=== PATIENT | female | born 1955 | race Caucasian/White ===

== ENCOUNTER → 2016-11-11 | Outpatient (CLI) | payer BC ==
[~2016-11-11] MED LIST: AMOX875T PO; ASPI81TA28 PO; CHOL2000 PO; CLIN1CAP51 PO; ERGO500037 PO; FLUC150T PO; GLUCTAB7 PO; HYZ/10015 PO; OMEG10007 PO; TRAM-10 PO
--- NOTE | 2016-11-11 11:49 | DIAGNOSTIC IMAGING REPORT ---
RIGHT LOWER ABDOMINAL WALL ULTRASOUND CLINICAL HISTORY: RT INGUINAL HERNIA pain COMPARISON STUDY: No previous studies for comparison. FINDINGS: No abdominal wall or inguinal hernia was visualized. Imaging was performed without and with stress maneuvers. IMPRESSION: No ultrasonographic evidence of hernia. Electronically signed by: Lorenzo Palafox M.D. 11/11/2016 11:47 AM
== END | disposition home or self-care (01) ==
LOC: C.ULTRBC 11:06
DX: K40.90 Unilateral inguinal hernia, without obstruction or gangrene, not specified as recurrent (principal)

== ENCOUNTER → 2016-11-26 | Outpatient (CLI) | payer BC ==
--- NOTE | 2016-11-26 14:24 | MAMMOGRAPHY REPORT ---
BILATERAL DIGITAL SCREENING MAMMOGRAM TOMOSYNTHESIS WITH CAD: 11/26/2016 CLINICAL HISTORY: Routine screening. Patient has no complaints. TECHNIQUE: Breast tomosynthesis in addition to standard 2D mammography was performed. Current study was also evaluated with a Computer Aided Detection (CAD) system. COMPARISON: Comparison is made to exams dated: 12/28/2015 mammogram, 11/21/2015 mammogram, 11/12/2015 m ammogram, 11/08/2014 mammogram, 11/07/2013 mammogram, and 11/04/2012 mammogram - [facility]. BREAST COMPOSITION: There are scattered areas of fibroglandular density in both breasts. FINDINGS: No suspicious masses, calcifications, or areas of architectural distortion are noted in e ither breast. There has been no significant interval change compared to prior exams. A biopsy marke r clip is noted in the left upper inner quadrant. Scattered bilateral benign-appearing calcificatio ns are not significantly changed. IMPRESSION: ACR BI-RADS CATEGORY 2: BENIGN There is no mammographic evidence of malignancy. A 1 year screening mammogram is recommended. The p atient will receive written notification of the results. Approximately 10% of breast cancers are not detected with mammography. A negative mammographic repor t should not delay biopsy if a clinically suggestive mass is present. Heavenly Martínez M.D. /:11/26/2016 12:22:08 Leadership Program Associate: Linnette VARMA(Juany)(Juan)(BD), [facility] letter sent: Normal 1/2 BI-RADS Code: ACR BI-RADS Category 2: Benign
== END | disposition home or self-care (01) ==
LOC: C.MAMM 11:47
DX: Z12.31 Encounter for screening mammogram for malignant neoplasm of breast (principal)

== ENCOUNTER → 2017-04-08 | Outpatient (CLI) | payer BC ==
[2017-04-08 11:10] LABS: ESTIMATED AVERAGE GLUCOSE 123 mg/dl; HA1C FLAG Normal (Normal)
[2017-04-08 11:25] LABS: ALT/SGPT 36 U/L (12-78); AST/SGOT 17 U/L (15-37); BLOOD UREA NITROGEN 14 mg/dl (7-18); BUN/CREATININE RATIO 16.6 (10-20); CARBON DIOXIDE 28 mmol/L (21-32); CHLORIDE 106 mmol/L (98-107); CREATININE 0.86 mg/dl (0.60-1.20); GLUCOSE 107 mg/dl (70-99); POTASSIUM 4.1 mmol/L (3.5-5.1); SODIUM 141 mmol/L (136-145)
== END | disposition home or self-care (01) ==
LOC: C.LABBC 07:37
DX: I10 Essential (primary) hypertension (principal); E78.5 Hyperlipidemia, unspecified; E55.9 Vitamin D deficiency, unspecified

== ENCOUNTER → 2017-05-11 | Outpatient (CLI) | payer BC ==
[2017-05-11 13:02] LABS: BASO % 0.3 %; BASO ABS # 0.02 K/uL (0-0.2); COMPLETE YES; EOS % 3.3 %; HEMATOCRIT 41.6 % (37-47); IG% 0.3 %; LYMPH % 31.5 %; LYMPH ABS # 2.03 K/uL (1.2-3.4); MEAN CELL VOLUME 91.8 fL (80-100); MEAN CORPUSCULAR HEMOGLOBIN 31.1 pg (25-34); MEAN CORPUSCULAR HGB CONC 33.9 g/dl (32-36); MEAN PLATELET VOLUME 10.2 fL (7.4-10.4); MONO % 6.2 %; NEUT % 58.4 %; PLATELET COUNT 210 K/uL (130-400); RED BLOOD COUNT 4.53 M/uL (4.2-5.4); WHITE BLOOD COUNT 6.44 K/uL (4.8-10.8)
[2017-05-11 13:39] LABS: BLOOD UREA NITROGEN 10 mg/dl (7-18); BUN/CREATININE RATIO 13.2 (10-20); CALCIUM 9.2 mg/dl (8.5-10.1); CARBON DIOXIDE 26 mmol/L (21-32); CHLORIDE 110 mmol/L (98-107); CREATININE 0.73 mg/dl (0.60-1.20); GLUCOSE 114 mg/dl (70-99); POTASSIUM 3.9 mmol/L (3.5-5.1); SODIUM 143 mmol/L (136-145)
== END | disposition home or self-care (01) ==
LOC: C.CPL 12:13
PROVIDERS: ATTEND Orthopaedic Surgery
DX: G56.02 Carpal tunnel syndrome, left upper limb (principal); R00.1 Bradycardia, unspecified

== ENCOUNTER → 2017-05-19 | Day surgery (SDC) | payer BC ==
[2017-05-13 13:26] VITALS: Ht 167.6 cm; Wt 94.5 kg
[~2017-05-19] VITALS: Ht 167.6 cm; Wt 94.5 kg
[~2017-05-19] MED LIST changes: +ADENOSINE IV SOLN 3 MG/ML 2 ML VIAL ONE; +ATROPINE SULFATE 0.1 MG/ML 5ML SYR IV PRN; +BETAMETH SOD PHOS/ACETATE IA 6 MG/ML ONE; +BUPIVACAINE 0.5 % 5 MG/1 ML MPF 30ML VIAL ONE; +CEFAZOLIN 2000 MG/60 ML D5W IV SCH; +EpHEDrine SULFATE INJ 50 MG/ML AMP IV PRN; +FENTANYL CITRATE INJ 50 MCG/1 ML 2 ML VIAL IV PRN; +FENTANYL CITRATE INJ 50 MCG/1 ML 2 ML VIAL ONE; +FLUMAZENIL 0.1 MG/1 ML 10 ML VIAL IV PRN; +HYDROmorphone INJ 2 MG/ML SYR/VIAL IV PRN; +LABETALOL HCL IV 5 MG/ML 20ML IV PRN; +LACTATED RINGER'S 1000ML 1,000 ML IV SCH; +LIDOCAINE HCL 1% 20 ML VIAL ONE; +LIDOCAINE HCL 2% 2 ML VIAL (20MG/ML) ONE; +MEPERIDINE HCL 25 MG/ML CARP IV PRN; +MIDAZOLAM HCL 1 MG/ML 2ML VIAL ONE; +NALOXONE HCL 0.4 MG/1 ML VIAL/CARP IV PRN; +ONDANSETRON INJ 2 MG/ML 2 ML VIAL IV PRN; +PHENYLEPHRINE 100MCG/ML 5ML SYR IV PRN; +PROPOFOL IV EMULSION 10 MG/ML 20 ML VIAL IV ONE; +SODIUM CHLORIDE 0.9% 1000ML 1,000 ML IV SCH; +TRAMADOL HCL 50 MG TAB PO PRN
--- NOTE | 2017-05-19 06:47 | History & Physical Bridge - SC ---
H&P Re-Evaluation Bridge Note: I have examined the patient, reviewed the History & Physical and in the interval since the performance of the History & Physical I have noted the following changes of clinical significance: No changes noted
--- NOTE | 2017-05-19 07:58 | [facility] Post Operative Brief Note ---
Immediate Operative Summary Operative Date May 19, 2017. Pre-Operative Diagnosis Left carpal tunnel syndrome and left trigger thumb release, Right trigger thumb and long finger Post-Operative Diagnosis Same as preop Procedure(s) Performed Left Carpal Tunnel Release; Left Trigger Thumb Release; Right Thumb And Right Long Finger Injections Surgeon Dr. Castro Out Of School Hours Care Worker Surgeon(s) None Estimated Blood Loss Minimal Findings ABOVE Specimens None Anesthesia LOCAL IV SEDATION Complication(s) None Disposition
--- NOTE | 2017-05-19 07:59 | Discharge Instructions-SurgCtr ---
Discharge Instructions Date of Service May 19, 2017. Visit Reason for Visit: Snapping Thumb Syndrome, Cts, Triggering Digit Discharge Discharge Diagnosis / Problem: SAME ABOVE Discharge Goals Goal(s): Decrease discomfort, Improve function Medications Stopped Medications Name(s): asa 81mg, vitamin d3, vitamin d, fish oil, and glucosamine stopped 05/13/17 Restart Stopped Medication(s): MAY RESTART 05/19/2017 Activity Recommendations Activity Limitations: as noted below Lifting Limitations: until after follow-up appointment Driving or Machine Use: resume 1 day after discharge Anesthesia . Post Anesthesia Instructions: If you have had General Anesthesia or IV Sedation: * Do not drive today. * Resume driving when surgeon permits. * Do not make important decisions or sign legal documents today. * Call surgeon for: 1. Temperature elevations greater than 101 degrees F. 2. Uncontrollable pain. 3. Excessive bleeding. 4. Persistent nausea and vomiting. 5. Medication intolerance (nausea, vomiting or rash). * For nausea and vomiting use only clear liquids such as: tea, soda, bouillon until nausea subsides, then gradually increase diet as tolerated. * If you have any concerns or questions, call your surgeon's office. If physician is unavailable and it is an emergency, call 911 or go to the nearest emergency room. . Instructions / Follow-Up Instructions / Follow-Up MEDICATIONS: * Resume previous medications unless instructed otherwise by your surgeon. * Always take pain medication on a full stomach or with food to avoid upset stomach. * Do not drink alcohol or drive while taking narcotics. * Ibuprofen or Tylenol may be taken if narcotic not needed. SPECIAL CARE INSTRUCTIONS: __ None _X_ Keep extremity elevated and iced x 48 hours; apply ice 20-30 minutes 8-10 times/day. May remove at night. __ Sling __24 hrs/day __ Remove at night __ Shoulder Immobilizer __ 24 hrs/day __ Remove at night _X_ Dressing _X_ Maintain until seen in office, may shower with plastic over site __ Remove dressings in 24-48 hours and then may shower __ Cover incisions with band-aids after showering __ Do not remove steri-strips Call physician if chills or temperature rises above 102 degrees or pain unrelieved by prescribed pain medications at . . Diet Recommendations Home Diet: no limitations Fluid Restriction: None Procedures Procedures Performed: Left Carpal Tunnel Release; Left Trigger Thumb Release; Right Thumb And Right Long Finger Injections Pending Studies Studies pending at discharge: no Work Instructions Return To Work: after follow-up Lifting Limitations: no more than 10 pounds Medical Emergencies . Who to Call and When: Medical Emergencies: If at any time you feel your situation is an emergency, please call 911 immediately. . Non-Emergent Contact Non-Emergency issues call your: Primary Care Provider Call Non-Emergent contact if: you have a fever, temperature is above 101.5 . . "Provider Documentation" section prepared by Venkat Fierro. .
[2017-05-19 08:03] VITALS: TEMP 36.6
--- NOTE | 2017-05-19 08:15 | Anesthesia Progress Nt - [facility] ---
Anesthesia Post Op Note Date & Time May 19, 2017 at 08:15 Vital Signs Pain Intensity: 0 Vital Signs Past 12 Hours Date Time Temp Pulse Resp B/P (MAP) Pulse Ox O2 Delivery O2 Flow Rate FiO2 05/19/17 08:03 36.6 63 16 112/70 (84) 98 Room Air 05/19/17 06:46 36.8 67 16 128/82 (97) 94 Room Air Notes Mental Status: alert / awake / arousable, participated in evaluation Pt Amnestic to Procedure: Yes Nausea / Vomiting: adequately controlled Pain: adequately controlled Airway Patency, RR, SpO2: stable & adequate BP & HR: stable & adequate Hydration State: stable & adequate Anesthetic Complications: no major complications apparent
[2017-05-19 08:35] VITALS: BP 135/81; PULSE 51; O2SAT 100
== END | disposition home or self-care (01) ==
LOC: X.SURG 06:31
PROVIDERS: ATTEND Orthopaedic Surgery
DX: M65.311 Trigger thumb, right thumb (principal); M65.312 Trigger thumb, left thumb; M65.331 Trigger finger, right middle finger; G56.02 Carpal tunnel syndrome, left upper limb; E78.00 Pure hypercholesterolemia, unspecified; I10 Essential (primary) hypertension; Z82.49 Family history of ischemic heart disease and other diseases of the circulatory system; Z83.3 Family history of diabetes mellitus

== ENCOUNTER → 2017-05-27 | Outpatient (CLI) | payer BC ==
[~2017-05-27] MED LIST changes: -ADENOSINE IV SOLN 3 MG/ML 2 ML VIAL ONE; -ATROPINE SULFATE 0.1 MG/ML 5ML SYR IV PRN; -BETAMETH SOD PHOS/ACETATE IA 6 MG/ML ONE; -BUPIVACAINE 0.5 % 5 MG/1 ML MPF 30ML VIAL ONE; -CEFAZOLIN 2000 MG/60 ML D5W IV SCH; -EpHEDrine SULFATE INJ 50 MG/ML AMP IV PRN; -FENTANYL CITRATE INJ 50 MCG/1 ML 2 ML VIAL IV PRN; -FENTANYL CITRATE INJ 50 MCG/1 ML 2 ML VIAL ONE; -FLUMAZENIL 0.1 MG/1 ML 10 ML VIAL IV PRN; -HYDROmorphone INJ 2 MG/ML SYR/VIAL IV PRN; -LABETALOL HCL IV 5 MG/ML 20ML IV PRN; -LACTATED RINGER'S 1000ML 1,000 ML IV SCH; -LIDOCAINE HCL 1% 20 ML VIAL ONE; -LIDOCAINE HCL 2% 2 ML VIAL (20MG/ML) ONE; -MEPERIDINE HCL 25 MG/ML CARP IV PRN; -MIDAZOLAM HCL 1 MG/ML 2ML VIAL ONE; -NALOXONE HCL 0.4 MG/1 ML VIAL/CARP IV PRN; -ONDANSETRON INJ 2 MG/ML 2 ML VIAL IV PRN; -PHENYLEPHRINE 100MCG/ML 5ML SYR IV PRN; -PROPOFOL IV EMULSION 10 MG/ML 20 ML VIAL IV ONE; -SODIUM CHLORIDE 0.9% 1000ML 1,000 ML IV SCH; -TRAMADOL HCL 50 MG TAB PO PRN
== END | disposition home or self-care (01) ==
LOC: C.MAMM 11:21
DX: Z13.820 Encounter for screening for osteoporosis (principal)

== ENCOUNTER 2017-06-08 10:12 | Emergency (ER) | payer BC ==
[~2017-06-08] VITALS: Ht 167.6 cm; Wt 93.0 kg
[~2017-06-08 10:12] MED LIST changes: -AMOX875T PO; -CLIN1CAP51 PO; -FLUC150T PO
[2017-06-08 10:16] VITALS: TEMP 37.5; Ht 167.6 cm; Wt 93.0 kg
[2017-06-08] MEDS ORDERED: CHOL2000 PO (10:27)
[2017-06-08] MEDS ORDERED: AMPICILLIN/SULBACTAM SOD INJ 3,000 MG in SODIUM CHLORIDE 0.9% 100ML 100 ML IV ONE (11:15)
[2017-06-08] MEDS ORDERED: AMOX875T PO (12:00)
[2017-06-08] MEDS ORDERED: FLUC150T PO (12:41)
[2017-06-08 12:43] VITALS: BP 127/64; PULSE 92; O2SAT 96
--- NOTE | 2017-06-08 16:30 | EMERGENCY ROOM VISIT NOTE ---
History First contact with patient: 10:41 Chief Complaint: FEVER Stated Complaint: HIGH FEVER History of Present Illness The patient is a 61 year old female who presents to the Emergency Room with complaints of dental pain. The patient reports that she was recently seen on for an abscess. Her dentist is Dr. Farris. The patient was offered antibiotics, but refused because of a prior history of yeast infection with antibiotics. The patient reports that she did have a fever last after her procedure. The patient denies any difficulty with swallowing, chest pain or neck pain. She did have a fever Thursday morning of 102.1F, and Thursday fever of 102.3F. The patient currently rates her pain a 3 out of 10. Review of Systems 10 system review was performed and was negative except for pertinent positives and negatives as indicated in history of present illness Past Medical/Surgical History Medical Problems: (1) Carotid Artery Occlusion W O Cerebral Infarction (2) Carpal Tunnel Syndrome, Left Upper Limb (3) Diab Jody Wo Compl, Type Ii Or Unspec Type, Not Uncntrld (4) Fat Necrosis Of Breast (5) Hyperlipidemia Nec/Nos (6) Hypertension Nos (7) Lumbago (8) Osteoporosis, unspecified (9) Vitamin D Deficiency Nos Surgical Problems: (1) History of arthroscopy of left knee (2) History of carpal tunnel surgery Social History Smoking Status: Never Smoker Alcohol Use: none Marital Status: Housing Status: lives with family Occupation Status: employed Current/Historical Medications Scheduled Amoxicillin & Pot Clavulanate (Augmentin 875-125 mg), 1 TAB PO BID Aspirin (Aspirin Ec), 81 MG PO Q2D Cholecalciferol (Vitamin D3), 2,000 UNIT PO DAILY Ergocalciferol (Vitamin D 71999 Unit), 50,000 UNIT PO WK Fish Oil ([place]-3), 1 CAP PO QAM Fluconazole (Diflucan), 150 MG PO UD Pdkgfrjdxqb-Kdxaddtkjfg-Lhj C- (Glucosamine Chondroitin), 1 TAB PO DAILY Hctz/Losartan (Hyzaar 25MG/100MG), 1 TAB PO QAM Physical Exam Vital Signs Date Time Temp Pulse Resp B/P (MAP) Pulse Ox O2 Delivery O2 Flow Rate FiO2 06/08/17 12:43 92 16 127/64 96 06/08/17 11:58 92 16 127/64 96 Room Air 06/08/17 10:16 37.5 95 18 118/70 96 Room Air Pain Rating (0-10): 0 Physical Exam CONSTITUTIONAL: Healthy and well nourished. Alert and oriented X 3 with positive affect. Patient does not appear in any acute distress, nor does she appear acutely or toxic. HEENT: Normocephalic, atraumatic. Pupils equal, round and reactive. No facial edema noted. OROPHARYNX: Examination shows no obvious gingival erythema, fluctuance or pointing. No evidence for Moise's angina or retropharyngeal abscess. NECK: Full active range of motion without discomfort. RESPIRATORY: Clear to auscultation bilaterally with no wheezing, crackles, rhonchi or stridor. CARDIOVASCULAR: Regular rate and rhythm with no murmurs, rubs or gallops. INTEGUMENTARY: No rash or other significant dermatologic conditions noted. NEUROLOGIC: Facial sensations are intact. Medical Decision & Procedures Medications Administered Medications (Trade) Dose Ordered Sig/Braydon Route Start Time Stop Time Status Last Admin Dose Admin Ampicillin Sodium/ Sulbactam Sodium 3000 mg/Sodium Chloride 108 ml @ 200 mls/hr ONE ONCE IV 06/08/17 11:15 06/08/17 11:47 DC 06/08/17 11:58 200 MLS/HR ED Course Patient history and physical exam were performed. Nurse's notes were reviewed. Vital signs were reviewed and normal. Blood pressure was also reviewed and normal. The patient was administered Unasyn 3 g IV infusion. The patient was instructed to follow-up with her oral surgeon for further reevaluation and management. She was encouraged to alternate ibuprofen and Tylenol as needed for pain. The patient refused any prescription analgesics, was happy with plan of care, and rated her pain a 3 out of 10 at the time of discharge. Medical Decision Medication Reconcilliation Current Medication List: was personally reviewed by nc Blood Pressure Screening Patient's blood pressure: Normal blood pressure Impression Primary Impression: Dental infection Departure Information Dispostion Home / Self-Care Condition GOOD Prescriptions Fluconazole (DIFLUCAN) 150 Mg Tab 150 MG PO UD, #1 TAB Prov: Fili Sheppard PA 06/08/17 Amoxicillin & Pot Clavulanate (Augmentin 875-125 mg) 1 Tab Tab 1 TAB PO BID for 10 Days, #20 TAB Prov: Fili Sheppard PA 06/08/17 Referrals John Aviles Jr, D.OLeila (PCP) Forms HOME CARE DOCUMENTATION FORM, IMPORTANT VISIT INFORMATION Patient Instructions My [facility] Additional Instructions Complete all Augmentin antibiotics as prescribed. Take Diflucan as needed for any developing yeast infection. Ibuprofen 800 mg and/or Tylenol 1000 mg every 8 hours. You may also alternate these medications for more effective pain relief: Ibuprofen --4 HRS--> Tylenol --4 HRS--> ibuprofen --4 HRS--> Tylenol .... Follow-up with your dentist/oral surgeon for further management.
== END 2017-06-08 12:54 | disposition home or self-care (01) ==
LOC: C.EDB 10:13
DX: K04.7 Periapical abscess without sinus (principal); I65.29 Occlusion and stenosis of unspecified carotid artery; G56.02 Carpal tunnel syndrome, left upper limb; E11.9 Type 2 diabetes mellitus without complications; E78.5 Hyperlipidemia, unspecified; I10 Essential (primary) hypertension; M81.0 Age-related osteoporosis without current pathological fracture; E55.9 Vitamin D deficiency, unspecified; Z79.82 Long term (current) use of aspirin

== ENCOUNTER 2017-06-10 18:45 | Emergency (ER) | payer BC ==
[~2017-06-10] VITALS: Ht 167.6 cm; Wt 93.4 kg
[~2017-06-10 18:45] MED LIST changes: +AMOX875T PO; +FLUC150T PO
[2017-06-10 18:49] VITALS: Ht 167.6 cm; Wt 93.4 kg
[2017-06-10] MEDS ORDERED: AMOX875T PO (19:11)
[2017-06-10 19:15] VITALS: O2SAT 95
--- NOTE | 2017-06-10 19:35 | EMERGENCY ROOM VISIT NOTE ---
History First contact with patient: 18:53 Chief Complaint: FEVER Stated Complaint: HIGH FEVER History of Present Illness The patient is a 61 year old female who presents to the Emergency Room with complaints of fever after recent dental work despite broad spectrum antibiotic coverage. Patient underwent dental work on 06/04/17 - there was a "bubble in her gum" over her top right molar. The dentist did an I&D and drained pus . Patient was offered antibiotics as an option, whic she declined That night she developed fevers/chills/sweats, which continued on through the weekend. Tmax was 102.8 Patient was alternating Tylenol 1000mg and ibuprofen 400mg q4h, not for any pain control, but rather for fever control only. With no improvement in 3 days, patient came to hospital on Thursday and received one dose of IV Unasyn, and then was transitioned to PO Augmentin. Currently she is on day 3 of the regimen, and claims compliance. The day after coming to hospital (on Thursday), patient felt much better, and was completely afebrile. However, on Thursday, patient was sent home from work mid day, as she appeared very hill. Patient noted facial flushing for which she applied an ice pack to her face for relief. She also noted recurrence of fever/chills of temp 101.5, took 1000mg of Tylenol, only to find her temperature at 102 an hour later. Since prior to dental work up until today, patient denies mouth/dental pain, trismus, ear pain, sinus pain, abdominal pain, trouble swallowing. She had mild facial swelling prior to initial dental work only. She did have a frontal headache earlier today, but it did not wake her from sleep, not associated with photophobia or rhinorrhea. She denies neck pain, but does state some stiffness. Additionally she has had some nausea and soft stools, but attributes this to the Augmentin. No vomiting. Patient states she is not diabetic Review of Systems See below Constitutional: + fever, + chills, + sweats, + fatigue, No weakness Eyes: No worsening of vision, No eye pain, No redness, No discharge, No diplopia ENT: + dental problems, No hearing loss, No nasal symptoms, No sore throat, No tinnitus, No trouble swallowing Respiratory: + cough, + problem reported (Wears CPAP usually at night), No sputum, No wheezing, No dyspnea on exertion, No dyspnea at rest, No hemoptysis Cardiovascular: + orthopnea, No chest pain, No PND, No edema, No palpitations Abdomen: + pain, + nausea, No vomiting, No diarrhea, No constipation Musculoskeletal: No joint pain, No muscle pain, No calf pain Genitourinary - Female: No dysuria, No urinary frequency, No urinary urgency , No hematuria Integumentary: No rash, No itch, No new/changing skin lesions Allergic / Immunologic: No environmental allergies, No seasonal allergies, No pet sensitivities, No food allergies Past Medical/Surgical History Medical Problems: (1) Carotid Artery Occlusion W O Cerebral Infarction (2) Carpal Tunnel Syndrome, Left Upper Limb (3) Diab Jody Wo Compl, Type Ii Or Unspec Type, Not Uncntrld (4) Fat Necrosis Of Breast (5) Hyperlipidemia Nec/Nos (6) Hypertension Nos (7) Lumbago (8) Osteoporosis, unspecified (9) Vitamin D Deficiency Nos Surgical Problems: (1) History of arthroscopic knee surgery (2) History of arthroscopy of left knee (3) History of carpal tunnel surgery Family History FH ischemic heart disease No significant family history Mom and sister have CAD with CABG Social History Smoking Status: Never Smoker Smokeless Tobacco Use: No Alcohol Use: none Drug Use: none Marital Status: Housing Status: lives with family Occupation Status: employed Current/Historical Medications Scheduled Amoxicillin & Pot Clavulanate (Augmentin 875-125 mg), 1 TAB PO BID Aspirin (Aspirin Ec), 81 MG PO Q2D Cholecalciferol (Vitamin D3), 2,000 UNIT PO QAM Clindamycin HCl (Clindamycin HCl), 3 CAP PO TID Ergocalciferol (Vitamin D 89312 Unit), 50,000 UNIT PO WK Fish Oil (Reyno-3), 1 CAP PO QAM Uehttipwocp-Qdyrxboiwut-Nxq C- (Glucosamine Chondroitin), 1 TAB PO QAM Hctz/Losartan (Hyzaar 25MG/100MG), 1 TAB PO QAM Physical Exam Vital Signs Date Time Temp Pulse Resp B/P (MAP) Pulse Ox O2 Delivery O2 Flow Rate FiO2 06/10/17 22:53 38.5 74 21 104/74 96 06/10/17 22:36 77 23 06/10/17 22:06 76 26 97 06/10/17 22:02 128/65 06/10/17 21:39 38.5 76 19 127/63 94 Room Air 06/10/17 21:38 127/63 06/10/17 21:06 77 23 94 06/10/17 21:01 117/63 06/10/17 20:36 74 20 95 06/10/17 20:32 107/68 06/10/17 19:31 136/70 06/10/17 19:15 83 18 94 Room Air 06/10/17 19:15 95 Room Air 06/10/17 19:06 87 06/10/17 19:03 121/71 06/10/17 18:49 38.8 90 18 132/67 95 Room Air Physical Exam GENERAL: alert, well appearing, lying in bed, no acute distress, non-toxic HEAD: NC/AT. No pain on scalp palpation, no sinus tenderness. EYES: PERRL, EOMI, normal conjunctiva OROPHARYNX: no exudate, no erythema, lips, buccal mucosa, and tongue normal and mucous membranes are moist. Gum above right upper second molar slightly swollen , but not injected, fluctuant, and without active drainage or bleeding. No trismus, TMJ tenderness, pain with manipulation of tragus or pinna. EARS: Tympanic membranes within normal limits, no indication of effusion bilaterally. NECK: supple, no nuchal rigidity, bilateral cervical adenopathy present, non- tender LUNGS: Clear to auscultation. Normal chest wall mechanics, good air entry. No crepitations, crackles, or wheezes HEART: no murmurs, S1 normal and S2 normal ABDOMEN: abdomen soft, non-tender, normo-active bowel sounds, no masses, no rebound or guarding. BACK: Back is symmetrical on inspection, no deformities, no midline tenderness, no CVA tenderness. SKIN: Warm, pink, dry. No erythema, rashes, or bruising. EXTREMITIES: grossly normal. No pitting edema. Calves non tender. Peripheral pulses present NEURO: Alert, Ox3. No focal deficits. Normal sensorium, cranial nerves II-XII grossly intact, normal speech. PSYCH: Mood and affect appropriate. Medical Decision & Procedures ER Provider Diagnostic Interpretation: FACIAL-MAXILLOFACIAL WITH CLINICAL HISTORY: Recent dental abscess (right upper molar) pain TECHNIQUE: Transaxial acquisition with multi axial reformatted images COMPARISON STUDY: None FINDINGS: No evidence for abscess or collection. No significant soft tissue edematous change. Several small cervical reactive nodes bilaterally. Mucous retention cyst Tamayo's right maxillary sinus. Sinuses otherwise are clear. No evidence for bony destructive process. IMPRESSION: No acute process. No evidence for abscess or collection by CT criteria. Laboratory Results 06/10/17 19:55 Red Blood Count 4.35, Mean Corpuscular Volume 87.8, Mean Corpuscular Hemoglobin 30.1, Mean Corpuscular Hemoglobin Concent 34.3, Mean Platelet Volume 10.6, Neutrophils (%) (Auto) 48.6, Lymphocytes (%) (Auto) 38.9, Monocytes (%) (Auto) 8.6, Eosinophils (%) (Auto) 2.1, Basophils (%) (Auto) 1.2, Neutrophils # (Auto) 1.65, Lymphocytes # (Auto) 1.32, Monocytes # (Auto) 0.29, Eosinophils # (Auto) 0.07, Basophils # (Auto) 0.04 06/10/17 19:55 Test 06/10/17 19:45 06/10/17 19:55 06/10/17 20:09 Urine Color YELLOW Urine Appearance CLEAR (CLEAR) Urine pH 5.5 (4.5-7.5) Urine Specific Dolphin 1.009 (1.000-1.030) Urine Protein NEG (NEG) Urine Glucose (UA) NEG (NEG) Urine Ketones NEG (NEG) Urine Occult Blood NEG (NEG) Urine Nitrite NEG (NEG) Urine Bilirubin NEG (NEG) Urine Urobilinogen NEG (NEG) Urine Leukocyte Esterase NEG (NEG) White Blood Count 3.39 K/uL (4.8-10.8) Red Blood Count 4.35 M/uL (4.2-5.4) Hemoglobin 13.1 g/dL (12.0-16.0) Hematocrit 38.2 % (37-47) Mean Corpuscular Volume 87.8 fL (80-100) Mean Corpuscular Hemoglobin 30.1 pg (25-34) Mean Corpuscular Hemoglobin Concent 34.3 g/dl (32-36) Platelet Count 102 K/uL (130-400) Mean Platelet Volume 10.6 fL (7.4-10.4) Neutrophils (%) (Auto) 48.6 % Lymphocytes (%) (Auto) 38.9 % Monocytes (%) (Auto) 8.6 % Eosinophils (%) (Auto) 2.1 % Basophils (%) (Auto) 1.2 % Neutrophils # (Auto) 1.65 K/uL (1.4-6.5) Lymphocytes # (Auto) 1.32 K/uL (1.2-3.4) Monocytes # (Auto) 0.29 K/uL (0.11-0.59) Eosinophils # (Auto) 0.07 K/uL (0-0.5) Basophils # (Auto) 0.04 K/uL (0-0.2) RDW Standard Deviation 41.2 fL (36.4-46.3) RDW Coefficient of Variation 12.7 % (11.5-14.5) Immature Granulocyte % (Auto) 0.6 % Immature Granulocyte # (Auto) 0.02 K/uL (0.00-0.02) Echinocytes 1+ Anion Gap 6.0 mmol/L (3-11) Est Creatinine Clear Calc Drug Dose 57.4 ml/min Estimated GFR () 56.9 Estimated GFR (Non- 49.1 BUN/Creatinine Ratio 11.1 (10-20) Calcium Level 8.9 mg/dl (8.5-10.1) Lactic Acid Level 0.8 mmol/L (0.4-2.0) Medications Administered Medications (Trade) Dose Ordered Sig/Braydon Route Start Time Stop Time Status Last Admin Dose Admin Clindamycin HCl (Cleocin Cap) 450 mg NOW STAT PO 06/10/17 22:33 06/10/17 22:34 DC 06/10/17 22:52 450 MG Procedure 1849: The patient was evaluated in room B6. A complete history and physical exam was performed 1935: Labs ordered CBC, BMP, blood culture x 2, lactic acid, UA. Imaging ordered CT facial bones with contrast 2054: Patient reassessed. Feeling slightly nauseous, but declined Zofran 2199: Patient reassessed. Feeling slightly better. Updated patient and family of results 2232: Clindamycin ordered Medical Decision Prior records/ancillary studies reviewed. Triage Nursing notes reviewed. Additional history obtained from daughter and . The patient's history was concerning for fever. Differential diagnosis: Etiologies such as absc ess,viral syndrome, otitis, pharyngitis, pneumonia, influenza, meningitis, urinary tract infection, sepsis, bacteremia, osteomyelitis as well as others were entertained. Physical examination: Grossly normal Diagnostics interpreted by me: The labs revealed low WBC, low platelets, normal BMP, normal lactic acid. Negative UA. Blood cultures pending Imaging studies: CT facial bones: normal study Consultation: The case was discussed and diagnostics were reviewed with the attending. The patient was evaluated in the ER for further treatment. This appears to be consistent with resolution of dental abscess. By the evaluation outlined above emergent etiologies such as abscess, osteomyelitis, otitis, pharyngitis, pneumonia, meningitis, urinary tract infection, sepsis, bacteremia, as well as others were deemed relatively unlikely. The patient informed about the findings as listed above. All questions were answered and family pleased with the management. Return instructions were outlined and the patient was discharged in stable condition. Outpatient prescription management: Clindamycin 450mg TID x 7 days Referral: The patient was referred back to their primary care physician for follow-up in 2 to 3 days for a recheck of the current condition. Impression Primary Impression: Fever Additional Impression: History of recent dental procedure Departure Information Dispostion Home / Self-Care Condition GOOD Prescriptions Clindamycin HCl (Clindamycin HCl) 150 Mg Cap 3 CAP PO TID for 7 Days, #62 CAP Prov: Alka. Pascal MD 06/10/17 Referrals No Doctor, Assigned (PCP) Patient Instructions My [facility] Additional Instructions You have been examined and treated today on an emergency basis only. This is not a substitute for, or an effort to provide, complete comprehensive medical care. Based on your history of recurrent fevers after >48 hours, there was concern for inadequate coverage with Augmentin for previous ginigival abscess. Your labs reported a non elevated WBC however. Kidney function was normal. Urine analysis was negative for infection. Blood cultures are pending on discharge. But lactic acid is within normal range. Imaging confirmed no recollection of fluid/abscess, no soft tissue infection or bony destruction. Still, it was considered pertinent to change antibiotic regimen to clindamycin. Please take 450mg three times daily for 7 days. This medication may cause diarrhea, and as such, eating yoghurt and taking probiotics is advised. Continue to take Tylenol and ibuprofen alternating for fevers and pain if any. Of note, platelets low at 102. Might be worth re-checking in the future, unless you note nosebleed, bruising, blood in urine or stool, in which case, this should be checked sooner. It is impossible to recognize and treat all injuries or illnesses in a single emergency department visit. It is therefore important that you make a follow up with your physician for close monitoring, ideally tomorrow or Darryl. If you cannot get in to see your family physician, please feel free to call Dr. Pascal at the [facility] on [facility] ([phone]) Return to ED for uncontrolled fever, vomiting, facial swelling, uncontrolled dental pain, headache, difficulty breathing, visual changes, worsening of your condition, or as needed. Resident Tracking Resident Involvement: Resident Care Provided Care Provided: Adult ED Problem Qualifiers
[2017-06-10 19:55] LABS: URINE APPEARANCE CLEAR (CLEAR); URINE BILIRUBIN NEG (NEG); URINE COLOR YELLOW; URINE NITRITE NEG (NEG); URINE PH 5.5 (4.5-7.5); URINE SPECIFIC GRAVITY 1.009 (1.000-1.030); UROBILINOGEN NEG (NEG); ZZUR CULT IF INDIC CLEAN CATCH NO
[2017-06-10 19:59] LABS: MANUAL MICROSCOPIC REQUIRED? NO; REVIEW REQ? NO
[2017-06-10 20:26] LABS: HEMATOCRIT 38.2 % (37-47); MEAN CELL VOLUME 87.8 fL (80-100); MEAN CORPUSCULAR HEMOGLOBIN 30.1 pg (25-34); MEAN CORPUSCULAR HGB CONC 34.3 g/dl (32-36); MEAN PLATELET VOLUME 10.6 fL (7.4-10.4); PLATELET COUNT 102 K/uL (130-400); RED BLOOD COUNT 4.35 M/uL (4.2-5.4); WHITE BLOOD COUNT 3.39 K/uL (4.8-10.8)
[2017-06-10] MEDS ORDERED: OPTIRAY 320 IV PRN (20:30)
[2017-06-10 20:32] LABS: BUN/CREATININE RATIO 11.1 (10-20); CALCIUM 8.9 mg/dl (8.5-10.1); CREATININE 1.2 mg/dl (0.60-1.20); POTASSIUM 3.7 mmol/L (3.5-5.1)
[2017-06-10 20:56] LABS: BASO % 1.2 %; BASO ABS # 0.04 K/uL (0-0.2); COMPLETE YES; ECHINOCYTES 1+; EOS % 2.1 %; IG% 0.6 %; LYMPH % 38.9 %; LYMPH ABS # 1.32 K/uL (1.2-3.4); MONO % 8.6 %; NEUT % 48.6 %
--- NOTE | 2017-06-10 21:44 | DIAGNOSTIC IMAGING REPORT ---
FACIAL-MAXILLOFACIAL WITH CLINICAL HISTORY: Recent dental abscess (right upper molar) pain TECHNIQUE: Transaxial acquisition with multi axial reformatted images COMPARISON STUDY: None FINDINGS: No evidence for abscess or collection. No significant soft tissue edematous change. Several small cervical reactive nodes bilaterally. Mucous retention cyst Tamayo's right maxillary sinus. Sinuses otherwise are clear. No evidence for bony destructive process. IMPRESSION: No acute process. No evidence for abscess or collection by CT criteria. The above report was generated using voice recognition software. It may contain grammatical, syntax or spelling errors. Electronically signed by: Venancio De La Torre M.D. 06/10/2017 9:42 PM Dictated Date/Time: 06/10/2017 9:39 PM
[2017-06-10] MEDS ORDERED: CLIN1CAP51 PO (22:29)
[2017-06-10] MEDS ORDERED: CLINDAMYCIN HCL 150 MG CAP PO STA (22:33)
--- NOTE | 2017-06-10 22:34 | EMERGENCY ROOM VISIT NOTE ---
ED Visit Note First contact with patient: 18:53 PT seen and examined at bedside with the resident. Discussed presentation, recent procedure, first ER visit and current sx with resident and with pt at bedside. Pt has been on antibiotics for 48 hours. Had brief episode today of f /c, nausea, lightheadedness and not feeling well. Was improved by arrival here. No obvious facial swelling, no drainage/fluctuance along gumline, no tenderness with percussion over teeth or tenderness with palpation of jaw/ mastoids, no lymphadenopathy at the neck. VS stable and labs reassuring, no evidence for abscess or osteomyelitis on CT. No trismus, no dysphagia, no dyspnea. Pt well appearing and discussion at bedside regarding antibiotics and need for close f/u. Pt aware of risks/benefits. No clinical evidence for failed outpt therapy however concern given recurrent sx today. Discussed f/u with oral surgeon and if unable to do so will f/u in the clinic as scheduled by the FP resident. Discussed sx to watch/return for, she verbalized understanding and was agreeable with plan.
[2017-06-10 22:53] VITALS: BP 104/74; PULSE 74; TEMP 38.5; O2SAT 96
== END 2017-06-10 22:53 | disposition home or self-care (01) ==
LOC: C.EDB 18:45
DX: R50.9 Fever, unspecified (principal); E11.9 Type 2 diabetes mellitus without complications; I10 Essential (primary) hypertension

== ENCOUNTER → 2017-06-17 | Outpatient (CLI) | payer BC ==
[~2017-06-17] MED LIST changes: +CLIN1CAP51 PO; -FLUC150T PO; -TRAM-10 PO
[2017-06-17 18:01] LABS: HEMATOCRIT 39.8 % (37-47); MEAN CELL VOLUME 89.6 fL (80-100); MEAN CORPUSCULAR HEMOGLOBIN 29.7 pg (25-34); MEAN PLATELET VOLUME 9.7 fL (7.4-10.4); PLATELET COUNT 273 K/uL (130-400); RED BLOOD COUNT 4.44 M/uL (4.2-5.4); WHITE BLOOD COUNT 8.01 K/uL (4.8-10.8)
--- NOTE | 2017-06-17 18:02 | DIAGNOSTIC IMAGING REPORT ---
CHEST 2 VIEWS ROUTINE HISTORY: 61 years-old Female acute fever and shortness of breath COMPARISON: None available TECHNIQUE: Frontal and lateral views of the chest FINDINGS: Cardiac silhouette is upper limits of normal. There is no pneumothorax, focal airspace consolidation or overt pulmonary edema. There is minimal blunting of the posterior costophrenic angle suggesting atelectasis or scarring without large pleural effusion identified. The bones appear to be grossly intact. Moderate general changes involve the glenohumeral joints bilaterally. Multilevel endplate spurring is seen throughout the spine. There is atherosclerosis of the aorta. IMPRESSION: Minimal blunting of the bilateral costophrenic angles posteriorly suggests atelectasis or scarring. No focal airspace consolidation to suggest pneumonia. The above report was generated using voice recognition software. It may contain grammatical, syntax or spelling errors. Electronically signed by: Alin Cannon M.D. 06/17/2017 6:01 PM Dictated Date/Time: 06/17/2017 5:59 PM
[2017-06-17 18:10] LABS: MEAN CORPUSCULAR HGB CONC 33.2 g/dl (32-36)
[2017-06-17 18:23] LABS: ALB/GLOB RATIO 0.6 (0.9-2); ALKALINE PHOSPHATASE 232 U/L (45-117); ALT/SGPT 222 U/L (12-78); AST/SGOT 99 U/L (15-37); BLOOD UREA NITROGEN 9 mg/dl (7-18); BUN/CREATININE RATIO 9.2 (10-20); C-REACTIVE PROTEIN 0.55 mg/dl (0-0.29); CALCIUM 9.2 mg/dl (8.5-10.1); CARBON DIOXIDE 31 mmol/L (21-32); CHLORIDE 101 mmol/L (98-107); CREATININE 0.97 mg/dl (0.60-1.20); GLUCOSE 90 mg/dl (70-99); POTASSIUM 3.7 mmol/L (3.5-5.1); RHEUMATOID FACTOR < 10.0 U/mL (0-15); SODIUM 136 mmol/L (136-145)
== END | disposition home or self-care (01) ==
LOC: C.LAB 17:27
PROVIDERS: ATTEND Student in an Organized Health Care Education/Training Program
DX: R50.9 Fever, unspecified (principal)

== ENCOUNTER → 2017-06-19 | Outpatient (CLI) | payer BC ==
[~2017-06-19] MED LIST changes: -CLIN1CAP51 PO
--- NOTE | 2017-06-19 16:55 | ECHOCARDIOGRAM REPORT ---
*NOTICE TO RECEIVING DEMOCRAT AGENCY This information is strictly Confidential and protected under [place] law. [place] law prohibits you from making any further disclosure of this information unless further disclosure is expressly permitted by the written consent of the person to whom it pertains or is authorized by law. A general authorization for the release of medical or other information is not sufficient for this purpose. Hospital accepts no responsibility if the information is made available to any other person, INCLUDING THE PATIENT. Interpretation Summary * Name: TERRY ALLEN Study Date: 06/19/2017 01:40 PM BP: 121/53 mmHg * Patient Location: [facility] HR: 80 * : 1955 (M/d/yyyy) Gender: Female Height: 66 in * Age: 61 yrs Ethnicity: CA Weight: 208 lb * Referring Physician: JOSÉ MIGUEL * Performed By: Nimco Woodson RDCS * * Reason For Study: FEVER OF UNKNOWN ORIGIN * BSA: 2.0 m2 * There is no evidence of a mass or vegetation. This does not rule out endocarditis. * -- Conclusions -- * The left ventricle is borderline dilated. * Left ventricular systolic function is normal. * Diastolic dysfunction, Grade II (pseudonormalization pattern). Procedure Details * A complete two-dimensional transthoracic echocardiogram was performed (2D, M-mode, Doppler and color flow Doppler). Left Ventricle * The left ventricle is borderline dilated. * There is normal left ventricular wall thickness. * Ejection Fraction = 55-60%. * Left ventricular systolic function is normal. * Diastolic dysfunction, Grade II (pseudonormalization pattern). Right Ventricle * The right ventricle is normal in size and function. Atria * The left atrial size is normal. * Right atrial size is normal. Mitral Valve * The mitral valve is grossly normal. * Significant mitral regurgitation is absent. Tricuspid Valve * The tricuspid valve is not well visualized, but is grossly normal. * Significant tricuspid regurgitation is absent. Aortic Valve * Aortic valve sclerosis mild, without significant aortic valvular stenosis. * No hemodynamically significant valvular aortic stenosis. * There is no significant aortic regurgitation. Great Vessels * The aortic root is normal size. Pericardium/Pleural * There is no pericardial effusion. MMode 2D Measurements and Calculations IVSd 0.99 cm IVSs 1.5 cm LVIDd 5.5 cm LVIDs 4.0 cm LVPWd 0.88 cm LVPWs 1.3 cm IVS/LVPW 1.1 FS 26.1 % EDV(Teich) 146.0 ml ESV(Teich) 72.1 ml EF(Teich) 50.6 % EDV(cubed) 164.3 ml ESV(cubed) 66.4 ml EF(cubed) 59.6 % % IVS thick 53.0 % % LVPW thick 49.3 % LV mass(C)d 193.9 grams LV mass(C)dI 95.3 grams/m\S\2 LV mass(C)s 216.2 grams LV mass(C)sI 106.3 grams/m\S\2 SV(Teich) 73.9 ml SI(Teich) 36.3 ml/m\S\2 SV(cubed) 97.9 ml SI(cubed) 48.1 ml/m\S\2 Ao root diam 3.1 cm Ao root area 7.7 cm\S\2 LA dimension 3.3 cm LA/Ao 1.0 LVAd ap4 29.8 cm\S\2 LVLd ap4 7.8 cm EDV(MOD-sp4) 94.5 ml EDV(sp4-el) 96.7 ml LVAs ap4 19.1 cm\S\2 LVLs ap4 6.7 cm ESV(MOD-sp4) 46.1 ml ESV(sp4-el) 46.7 ml EF(MOD-sp4) 51.2 % EF(sp4-el) 51.7 % LVAd ap2 24.3 cm\S\2 LVLd ap2 7.5 cm EDV(MOD-sp2) 65.6 ml EDV(sp2-el) 66.9 ml LVAs ap2 15.7 cm\S\2 LVLs ap2 6.8 cm ESV(MOD-sp2) 30.9 ml ESV(sp2-el) 30.6 ml EF(MOD-sp2) 52.9 % EF(sp2-el) 54.2 % LVLd %diff -4.34 % EDV(MOD-bp) 80.2 ml LVLs %diff 2.0 % ESV(MOD-bp) 37.8 ml EF(MOD-bp) 52.8 % SV(MOD-sp4) 48.4 ml SI(MOD-sp4) 23.8 ml/m\S\2 SV(MOD-sp2) 34.7 ml SI(MOD-sp2) 17.0 ml/m\S\2 SV(MOD-bp) 42.4 ml SI(MOD-bp) 20.8 ml/m\S\2 SV(sp4-el) 50.0 ml SI(sp4-el) 24.6 ml/m\S\2 SV(sp2-el) 36.3 ml SI(sp2-el) 17.8 ml/m\S\2 Doppler Measurements and Calculations MV E max cristina 83.9 cm/sec MV A max cristina 68.9 cm/sec MV E/A 1.2 MV dec time 0.27 sec Ao V2 max 128.1 cm/sec Ao max PG 6.6 mmHg Ao max PG (full) 2.0 mmHg LV V1 max PG 4.6 mmHg LV V1 max 106.7 cm/sec
== END | disposition home or self-care (01) ==
LOC: C.CPL 13:33
PROVIDERS: ATTEND Family Medicine
DX: R50.9 Fever, unspecified (principal)

== ENCOUNTER → 2017-10-27 | Day surgery (SDC) | payer BC ==
[2017-09-30 08:14] VITALS: Ht 167.6 cm; Wt 94.5 kg
[~2017-10-27] VITALS: Ht 167.6 cm; Wt 94.5 kg
[~2017-10-27] MED LIST changes: -AMOX875T PO; +ATROPINE SULFATE 0.1 MG/ML 5ML SYR IV PRN; +BUPIVACAINE 0.5 % 5 MG/1 ML MPF 30ML VIAL ONE; +CEFAZOLIN 2000MG IV PUSH 10 ML IV SCH; -ERGO500037 PO; +FENTANYL CITRATE INJ 50 MCG/1 ML 2 ML VIAL IV PRN; +FENTANYL CITRATE INJ 50 MCG/1 ML 2 ML VIAL ONE; +KETOROLAC TROMETHAMINE 30 MG/ML VIAL IV. PRN; +LACTATED RINGER'S 1000ML 1,000 ML IV SCH; +LIDOCAINE HCL 1% 20 ML VIAL ONE; +LIDOCAINE HCL 2% 2 ML VIAL (20MG/ML) ONE; +MIDAZOLAM HCL 1 MG/ML 2ML VIAL ONE; +ONDANSETRON INJ 2 MG/ML 2 ML VIAL IV PRN; +OXYCODONE/ACETAMINOPHEN 5-325 TAB PO PRN; +PROPOFOL IV EMULSION 10 MG/ML 20 ML VIAL IV ONE; +SODIUM CHLORIDE 0.9% 1000ML 1,000 ML IV SCH; +TRAM-10 PO
--- NOTE | 2017-10-27 08:46 | [facility] Post Operative Brief Note ---
Immediate Operative Summary Operative Date Oct 27, 2017. Pre-Operative Diagnosis Right long trigger finger Post-Operative Diagnosis same as preop Procedure(s) Performed Right Long Trigger Finger Release Surgeon Dr. Castro Chief Environmental Commitment Officer Surgeon(s) Ibrahima Hodge PA-C Estimated Blood Loss 0ml Findings ABOVE Specimens none per surgeon Anesthesia LOCAL IV SEDATION Complication(s) None Disposition
[2017-10-27 08:49] VITALS: TEMP 36.7
--- NOTE | 2017-10-27 08:50 | Discharge Instructions-SurgCtr ---
Discharge Instructions Date of Service Oct 27, 2017. Visit Reason for Visit: Right Long Trigger Finger Discharge Discharge Diagnosis / Problem: SAME ABOVE Discharge Goals Goal(s): Decrease discomfort, Improve function Activity Recommendations Activity Limitations: as noted below Lifting Limitations: gradually increase as tolerated Exercise/Sports Limitations: until after follow-up appointment Shower/Bathe: tomorrow Anesthesia . Post Anesthesia Instructions: If you have had General Anesthesia or IV Sedation: * Do not drive today. * Resume driving when surgeon permits. * Do not make important decisions or sign legal documents today. * Call surgeon for: 1. Temperature elevations greater than 101 degrees F. 2. Uncontrollable pain. 3. Excessive bleeding. 4. Persistent nausea and vomiting. 5. Medication intolerance (nausea, vomiting or rash). * For nausea and vomiting use only clear liquids such as: tea, soda, bouillon until nausea subsides, then gradually increase diet as tolerated. * If you have any concerns or questions, call your surgeon's office. If physician is unavailable and it is an emergency, call 911 or go to the nearest emergency room. . Instructions / Follow-Up Instructions / Follow-Up MEDICATIONS: * Resume previous medications unless instructed otherwise by your surgeon. * Always take pain medication on a full stomach or with food to avoid upset stomach. * Do not drink alcohol or drive while taking narcotics. * Ibuprofen or Tylenol may be taken if narcotic not needed. SPECIAL CARE INSTRUCTIONS: __ None _X_ Keep extremity elevated and iced x 48 hours; apply ice 20-30 minutes 8-10 times/day. May remove at night. __ Sling __24 hrs/day __ Remove at night __ Shoulder Immobilizer __ 24 hrs/day __ Remove at night _X_ Dressing __ Maintain until seen in office, may shower with plastic over site _X_ Remove dressings in 24-48 hours and then may shower _X_ Cover incisions with band-aids after showering __ Do not remove steri-strips Call physician if chills or temperature rises above 102 degrees or pain unrelieved by prescribed pain medications at . . Diet Recommendations Home Diet: resume previous diet Procedures Procedures Performed: Right Long Trigger Finger Release Pending Studies Studies pending at discharge: no Medical Emergencies . Who to Call and When: Medical Emergencies: If at any time you feel your situation is an emergency, please call 911 immediately. . Non-Emergent Contact Non-Emergency issues call your: Primary Care Provider . . "Provider Documentation" section prepared by Rik Hodge. .
--- NOTE | 2017-10-27 09:12 | OPERATIVE REPORT ---
DATE OF OPERATION: 10/27/2017 PREOPERATIVE DIAGNOSIS: Right long trigger finger. POSTOPERATIVE DIAGNOSIS: Same. PROCEDURE: Release A1 casimiro, right long finger. SURGEON: Dr. Castro. POWER AND RECOVERY SUPERVISOR: Rik Hodge PA-C. ANESTHESIOLOGIST: Dr. Gonzalez. ANESTHESIA: Local with IV sedation. DRAINS: None. COMPLICATIONS: None. CONDITION: The patient tolerated the procedure well and returned to the recovery room in apparent satisfactory condition. INDICATIONS FOR SURGERY: Zuleima is a 61-year-old female well known to me having had prior hand surgery, presents with a right long trigger finger. She had elected to go ahead with surgery to correct her problem. Procedure, expected outcomes and side effects were all explained in detail. PROCEDURE: The patient was taken to the OR at which time she was placed supine on the operating table and given IV sedation. The right hand was prepped and draped in usual sterile fashion for surgery. We went ahead and anesthetized the anticipated incision site with 1% Xylocaine and put a forearm tourniquet up to 250 mmHg. We made a transverse incision over the A1 casimiro. A fair amount of scar tissue was right above the tendon area. With loupe magnification, we dissected out the A1 casimiro and then divided with an 11 blade and tenotomy scissors. There was actually some fluid in the tendon sheath. We took the finger through a range of motion, no longer triggering. The wound was irrigated, closed with interrupted 4-0 nylon sutures. Marcaine without epinephrine was placed in skin edges, placed sterile dressing of Xeroform, 4 x 4, soft roll and Coban and returned back to recovery room in apparent satisfactory condition. I attest to the content of the Intraoperative Record and any orders documented therein. Any exception s are noted below.
[2017-10-27 09:13] VITALS: BP 113/75; PULSE 58; O2SAT 95
--- NOTE | 2017-10-27 09:24 | Anesthesia Progress Nt - [facility] ---
Anesthesia Post Op Note Date & Time Oct 27, 2017 at 09:23 Vital Signs Pain Intensity: 0 Vital Signs Past 12 Hours Date Time Temp Pulse Resp B/P (MAP) Pulse Ox O2 Delivery O2 Flow Rate FiO2 10/27/17 09:13 58 18 113/75 (88) 95 Room Air 10/27/17 08:49 36.7 62 16 121/74 (90) 95 Room Air 10/27/17 07:33 36.7 73 16 129/78 (95) 95 Room Air Notes Mental Status: alert / awake / arousable, participated in evaluation Pt Amnestic to Procedure: Yes Nausea / Vomiting: adequately controlled Pain: adequately controlled Airway Patency, RR, SpO2: stable & adequate BP & HR: stable & adequate Hydration State: stable & adequate Anesthetic Complications: no major complications apparent
== END | disposition home or self-care (01) ==
LOC: X.SURG 07:19
PROVIDERS: ATTEND Orthopaedic Surgery
DX: M65.331 Trigger finger, right middle finger (principal); I10 Essential (primary) hypertension; E78.00 Pure hypercholesterolemia, unspecified; Z79.82 Long term (current) use of aspirin; Z79.899 Other long term (current) drug therapy; E66.9 Obesity, unspecified; Z68.33 Body mass index [BMI] 33.0-33.9, adult

== ENCOUNTER → 2017-11-27 | Outpatient (CLI) | payer BC ==
[~2017-11-27] MED LIST changes: -ATROPINE SULFATE 0.1 MG/ML 5ML SYR IV PRN; -BUPIVACAINE 0.5 % 5 MG/1 ML MPF 30ML VIAL ONE; -CEFAZOLIN 2000MG IV PUSH 10 ML IV SCH; -FENTANYL CITRATE INJ 50 MCG/1 ML 2 ML VIAL IV PRN; -FENTANYL CITRATE INJ 50 MCG/1 ML 2 ML VIAL ONE; -KETOROLAC TROMETHAMINE 30 MG/ML VIAL IV. PRN; -LACTATED RINGER'S 1000ML 1,000 ML IV SCH; -LIDOCAINE HCL 1% 20 ML VIAL ONE; -LIDOCAINE HCL 2% 2 ML VIAL (20MG/ML) ONE; -MIDAZOLAM HCL 1 MG/ML 2ML VIAL ONE; -ONDANSETRON INJ 2 MG/ML 2 ML VIAL IV PRN; -OXYCODONE/ACETAMINOPHEN 5-325 TAB PO PRN; -PROPOFOL IV EMULSION 10 MG/ML 20 ML VIAL IV ONE; -SODIUM CHLORIDE 0.9% 1000ML 1,000 ML IV SCH
--- NOTE | 2017-11-27 13:59 | MAMMOGRAPHY REPORT ---
BILATERAL DIGITAL SCREENING MAMMOGRAM TOMOSYNTHESIS WITH CAD: 11/27/2017 CLINICAL HISTORY: Routine screening. Patient has no complaints. TECHNIQUE: Breast tomosynthesis in addition to standard 2D mammography was performed. Current study was also evaluated with a Computer Aided Detection (CAD) system. COMPARISON: Comparison is made to exams dated: 11/26/2016 mammogram, 12/28/2015 stereotactic biopsy, mammogram, 11/08/2014 mammogram, 11/07/2013 mammogram, and 10/08/2010 mammogram - [facility]. BREAST COMPOSITION: There are scattered areas of fibroglandular density in both breasts. FINDINGS: No suspicious masses, calcifications, or areas of architectural distortion are noted in ei ther breast. There has been no significant interval change compared to prior exams. A biopsy marker clip is again noted within the left upper inner quadrant. IMPRESSION: ACR BI-RADS CATEGORY 2: BENIGN There is no mammographic evidence of malignancy. A 1 year screening mammogram is recommended. The pa tient will receive written notification of the results. Approximately 10% of breast cancers are not detected with mammography. A negative mammographic report should not delay biopsy if a clinically suggestive mass is present. Heavenly Martínez M.D. ah/:11/27/2017 12:30:08 Sales Operations Lead: Billie MCKEON)(Juan), [facility] letter sent: Normal 1/2 BI-RADS Code: ACR BI-RADS Category 2: Benign
== END | disposition home or self-care (01) ==
LOC: C.MAMM 11:53
DX: Z12.31 Encounter for screening mammogram for malignant neoplasm of breast (principal)

== ENCOUNTER 2020-08-28 06:42 | Observation (INO) ==
--- NOTE | 2020-07-26 09:25 | PAT Medication Instructions ---
Medication Instructions Date of Service July 26, 2020 Home Medications aspirin [Aspirin Low Dose] 81 mg PO 3XWK cholecalciferol (vitamin D3) [Vitamin D3] 2,000 unit PO QAM losartan-hydrochlorothiazide 1 tab PO QAM omega 1-gbq-uou-fish oil [Fish Oil] 1 cap PO QAM potassium gluconate 595 mg PO QAM diclofenac sodium 75 mg tablet,delayed release 75 mg PO BID PRN acetaminophen [Tylenol Extra Strength] 1,000 mg PO Q6H PRN ibuprofen 600 mg PO Q6H PRN magnesium oxide 250 mg PO QAM Continue as directed aspirin [Aspirin Low Dose] 81 mg PO 3XWK ASK your surgeon for instructions diclofenac sodium 75 mg tablet,delayed release 75 mg PO BID PRN ibuprofen 600 mg PO Q6H PRN STOP taking 2 weeks before surgery (or as soon as possible if surgery is within 2 weeks) omega 3-trv-kmt-fish oil [Fish Oil] 1 cap PO QAM DO NOT take the morning of surgery cholecalciferol (vitamin D3) [Vitamin D3] 2,000 unit PO QAM losartan-hydrochlorothiazide 1 tab PO QAM potassium gluconate 595 mg PO QAM magnesium oxide 250 mg PO QAM Take morning of surgery With a small sip of water, OTHERWISE NOTHING TO EAT OR DRINK AFTER MIDNIGHT: acetaminophen [Tylenol Extra Strength] 1,000 mg PO Q6H PRN (okay to take up to 4 hours prior to surgery if needed) Take evening before surgery acetaminophen [Tylenol Extra Strength] 1,000 mg PO Q6H PRN (if needed) Other Notes If you have any questions please call us at [phone] or [phone] or [phone] or [phone]
--- NOTE | 2020-07-30 08:21 | Anesthesiology Consultation ---
Date of Service July 30, 2020 Assessment & Plan (1) Encounter for pre-operative examination: Chart Review Chart Review: Acceptable Risk for Surgery (pending preop Covid test results ) and Patient seen in Pre Admission Testing Per PAT appt on 07/30/20, pt resides in [facility]. No recent travel. Wears mask, uses good hand hygiene and socially distances. No known Covid positive contacts or Covid related symptoms. Pt's sister was tested for Covid in the past month due to being admitted to hospital- tested negative. Educated patient to follow up with surgeon's office regarding Covid testing. Educated on importance of self quarantining, social distancing and wearing mask in public both for the patient and household contacts. Teaching & Discussion Pre-Anesthesia Teaching/Discussion Notes: Instructed NPO after midnight before surgery,except medications with 15 cc of water. Medication instructions provided according to the PAT guidelines. History Surgery Operation Date: 08/28/20 07:00 Proposed Procedures p Right Total Knee Arthroplasty - Lonny Riddle MD Height/Weight Height: 5 ft 6 in Weight: 86.8 kg Allergies Allergy/AdvReac Type Severity Reaction Status Date / Time clarithromycin AdvReac Mild UPSET Verified 07/23/20 16:41 STOMACH oxycodone [From Roxicet] AdvReac Mild nausea/dizziness Verified 07/23/20 16:41 - able to do brand name Medications Home Medications Medication Instructions Recorded Confirmed Last Taken aspirin [Aspirin Low Dose] 81 mg PO 3XWK 09/07/19 07/23/20 09/15/19 cholecalciferol (vitamin D3) 2,000 unit PO QAM 09/07/19 07/23/20 09/15/19 [Vitamin D3] losartan-hydrochlorothiazide 1 tab PO QAM 09/07/19 07/23/20 09/20/19 05:30 omega 1-kni-vfs-fish oil [Fish Oil] 1 cap PO QAM 09/07/19 07/23/20 09/15/19 potassium gluconate 595 mg PO QAM 09/07/19 07/23/20 09/15/19 diclofenac sodium 75 mg 75 mg PO BID PRN 10/31/19 07/23/20 Unknown tablet,delayed release acetaminophen [Tylenol Extra 1,000 mg PO Q6H PRN 07/23/20 07/23/20 Unknown Strength] ibuprofen 600 mg PO Q6H PRN 07/23/20 07/23/20 Unknown magnesium oxide 250 mg PO QAM 07/23/20 07/23/20 Unknown Past Medical History Medical History Anxiety Hypertension Osteoarthritis Sleep apnea cpap Exercise / Class Metabolic Activity II 4-5 Yardwork/Stairs/Walk up hill (one flight of stairs - no chest pain or SOB) Past Family History Family History Sister FHx: myocardial infarction, Onset Age: 39 Family history of diabetes mellitus Mother FHx: myocardial infarction, Onset Age: 50 Past Surgical History Surgical History History of breast biopsy with stereotactic biopsy (Left?) History of colonoscopy S/P left knee arthroscopy S/P KYLE (total abdominal hysterectomy) S/P trigger finger release bilateral (multiple) Past Anesthesia History No Hx of Anesthesia Complications and No Family Hx of Anesthesia Complications History of PONV No Hx of PONV and No Hx of Motion Sickness Social History Smoking Status: Never smoker Do You Dip or Chew Tobacco: No Hx Alcohol Use: Yes Alcohol type: wine alcohol intake frequency: holidays/special occasions only Hx Substance Use: No substance use type: does not use Review of Systems Patient denies chest pain, shortness of breath, dyspnea on exertion, reflux, cough, wheezing, palpitations. No hx of seizures, stroke, MA. No hx of blood clots or blood transfusions Physical Exam Vital Signs VITALS BP 121/80 P 69 TEMP 98.2 SP02 96% RESP 16 Constitutional no acute distress ENMT Mouth: no TMJ clicking Thyromental Distance: > or= 3.5 Finger Breadths (3.5) Mallampati Class: I (smaller airway ) Permanent implant to bottom front Crowns to molars Missing molars Neck + thick neck (mild ); neck extension not limited Respiratory normal respiratory effort; no respiratory distress Auscultation: lungs clear to auscultation bilaterally; no wheezes Cardiovascular Rate/Rhythm: regular rate and regular rhythm Heart Sounds: no murmur Vessels: no carotid bruit Musculoskeletal Spine: no pain with cervical ROM Neurologic moves all extremities Psychiatric Orientation: alert Testing Laboratory Results 07/30/20 08:40 07/30/20 08:40 PT 10.9 Seconds (9.0-12.0) 07/30/20 08:40 INR 1.0 (0.9-1.1) 07/30/20 08:40 APTT 27.3 Seconds (21.0-31.0) 07/30/20 08:40 Blood Type O Positive 07/30/20 08:40 Antibody Screen NEGATIVE 07/30/20 08:40 Electrocardiogram Date: 07/30/20 Findings: + NSR @ (64) Normal EKG. Chest X-Ray Date: 07/30/20 Subtle 7 mm opacity within the right upper lung zone, possibly representing a summation. A six-month follow-up study could be obtained as deemed clinically appropriate. Otherwise no acute findings. (CXR was faxed to PCP as FYI to follow up as outpatient)
--- NOTE | 2020-07-30 09:09 | XRay Report ---
XR chest Pre-admission PA/Lat CLINICAL HISTORY: Preoperative chest COMPARISON STUDY: June 2017 FINDINGS: The cardiac and mediastinal contours are normal. There is no evidence of focal pulmonary co nsolidation. There is no evidence of failure. No pleural effusions are visualized.[Degenerative reyez es are present within the dorsal spine. A subtle 7 mm opacity within the right upper lung zone. This is nonspecific but may represent a summation. A six-month follow-up study could be obtained as deemed clinically appropriate IMPRESSION: 1. Subtle 7 mm opacity within the right upper lung zone, possibly representing a summation. A six-mon th follow-up study could be obtained as deemed clinically appropriate. 2. Otherwise no acute findings. ACT 112: Positive. There are findings on this exam that require communication between the performing entity and the patient following Patient Test Result Information Act ([place] Act 112) guidelines. Electronically signed by: Lorenzo Palafox M.D. 07/30/2020 9:07 AM
--- NOTE | 2020-07-30 09:43 | Electrocardiogram Report ---
Test Reason : Blood Pressure : / mmHG Vent. Rate : 064 BPM Atrial Rate : 064 BPM P-R Int : 178 ms QRS Dur : 084 ms QT Int : 396 ms P-R-T Axes : 055 -21 021 degrees QTc Int : 408 ms Normal sinus rhythm Normal ECG When compared with ECG of 11-MAY-2017 13:00, No significant change was found Confirmed by Preston Rogers ([id number]) on 07/30/2020 9:43:02 AM Referred By: Lonny Riddle Confirmed By:Preston Rogers
[2020-07-30 10:31] LABS: Basophils # (auto) 0.03 K/uL (0-0.2); Basophils % (auto) 0.5 %; Eosinophils # (auto) 0.34 K/uL (0-0.5); Eosinophils % (auto) 5.7 %; Hematocrit (blood only) 42.8 % (37-47); Hemoglobin 14.6 g/dL (12.0-16.0); Immature Granulocytes # (auto) 0.02 K/uL (0.00-0.02); Immature Granulocytes % (auto) 0.3 %; Lymphocytes # (auto) 1.12 K/uL (1.2-3.4); Lymphocytes % (auto) 18.9 %; Mean Corpuscular Hemoglobin 31.3 pg (25-34); Mean Corpuscular Hgb Conc 34.1 g/dL (32-36); Mean Corpuscular Volume 91.8 fL (80-100); Mean Platelet Volume 10.3 fL (7.4-10.4); Monocytes # (auto) 0.46 K/uL (0.11-0.59); Monocytes % (auto) 7.8 %; Neutrophils # (auto) 3.96 K/uL (1.4-6.5); Neutrophils % (auto) 66.8 %; Platelet Count 230 K/uL (130-400); RDW Coefficient of Variation 12.6 % (11.5-14.5); RDW Standard Deviation 42.2 fL (36.4-46.3); Red Blood Count 4.66 M/uL (4.2-5.4); White Blood Count 5.93 K/uL (4.8-10.8)
[2020-07-30 10:41] LABS: BUN Creatinine Ratio 15.7 (10-20); Calcium 9.6 mg/dl (8.5-10.1); Creatinine Clr Calc Pharmacy 77.9 ml/min; Est GFR (African American) 88.3; Est GFR (Non-African American) 76.2
[2020-07-30 10:52] LABS: Partial Thromboplastin Time 27.3 Seconds (21.0-31.0); Prothrombin Time 10.9 Seconds (9.0-12.0)
--- NOTE | 2020-08-21 19:17 | History and Physical Report ---
DATE OF ADMISSION: 08/28/2020 CHIEF COMPLAINT: Bilateral knee pain and discomfort, right side greater than left. 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 She has a long history of knee problems and had her left knee scoped by Dr. Villanueva in 2008. She has been through extensive conservative treatment for both knees over the past 10 years. I have been treating her with injections as well as oral medicines, which sometimes help and sometimes not. The right knee has been bothering more than the left. It is mostly medial pain but some global pain. The more she is up and walking, the more it hurts. She limps more as the day goes on. She has nighttime pain. She would like to have her right knee replaced. PAST MEDICAL HISTORY: Significant for, 1. Sleep apnea. 2. Hypertension. PAST SURGICAL HISTORY: Includes, 1. Childbirth x2. 2. Tubal ligation. 3. Hysterectomy. 4. Bladder surgery. 5. Left knee scoped by Dr. Villanueva in 2008. ALLERGIES: ROXICET, BIAXIN, ARISTOSPAN. CURRENT MEDICINES: Include, 1. Aspirin once a day. 2. Vitamin D3. 3. Diclofenac twice a day. 4. Glucosamine. 5. Losartan/hydrochlorothiazide. 6. [place]-3. 7. Potassium gluconate. SOCIAL HISTORY: Significant for a 64-year-old female. She works as a nurse at [employer] She does not smoke. No significant alcohol intake. FAMILY HISTORY: Noncontributory. REVIEW OF HISTORY: Negative for diabetes, neurologic problems, vascular problems or bleeding problems. No chest pain or shortness of breath. No history of DVT or PE. No known bleeding problems. PHYSICAL EXAMINATION GENERAL: Shows a pleasant, middle-aged female. Looks to be in good health. HEENT: Benign. NECK: Supple, no lymphadenopathy. LUNGS: Clear to auscultation. HEART: Has a regular rate and rhythm. ABDOMEN: Soft, nontender, nondistended. EXTREMITIES: Grossly neurovascularly intact except as follows: Examination of both knees reveals the patient ambulates independently. She does have a varus alignment to both knees. Examination of the right knee reveals varus alignment with some bony hypertrophy medially. She is tender over the medial joint line. Small knee effusion. Range of motion is 5-125. No instability. No pain with hip motion. She is neurologically intact. Examination of left knee reveals slight varus alignment. She has got bony hypertrophy medially. Some mild medial tenderness. Range of motion 5-125. No instability. X-RAYS: X-rays of both knees show advanced bilateral medial compartment DJD. She has got complete loss of medial joint space in both knees. She has got osteophytes off the medial femoral condyle and medial tibial plateau. She has subchondral sclerosis. ASSESSMENT: A 64-year-old female with advanced bilateral knee degenerative joint disease. She has become less responsive to conservative care. The right knee is bothering her more than the left. She would like to have her right knee fixed. PLAN: We will take her to the operating room and do right total knee replacement. The risks and benefits of this procedure were explained to the patient and include but not limited to DVT, PE, , infection, neurological injury, vascular injury, bleeding problem, pain, limited range of motion, stiffness, failure to relieve her symptoms, incomplete relief of symptoms, need for further surgery in the future, fracture, leg length inequality, nerve palsy, etc. The patient understands and desires to proceed. Informed consent was obtained. We will have to make sure she brings her CPAP machine to the hospital. She has stopped her diclofenac 2 weeks preop. She should be able to be discharged to home using [facility] home health program.
[~2020-08-28 06:42] MED LIST changes: +ACETAMINOPHEN 500 MG TAB PO SCH; -ASPI81TA28 PO; +BUPIVACAINE 0.5 % 5 MG/1 ML PF 10ML VIAL ONE; +BUPIVACAINE LIPOSOME/PF 266 MG, BUPIVACAINE/EPINEPHRINE 50 ML, SODIUM CHLORIDE 0.9% 30 ... INFIL SCH; +BUPIVACAINE/EPINEPHRINE 0.25% 1:200,000 30 ML VIAL ONE; -CHOL2000 PO; +DEXAMETHASONE SOD INJ 4 MG/ML VIAL ONE; +FAMOTIDINE 20 MG TAB PO SCH; +GABAPENTIN 600 MG DOSE PO SCH; -GLUCTAB7 PO; -HYZ/10015 PO; +LR 500ML BOLUS, THEN 15ML/HR IV SCH; +LR 60ML/HR IV SCH; +MIDAZOLAM HCL 1 MG/ML 2ML VIAL ONE; -OMEG10007 PO; -TRAM-10 PO; +TRANEXAMIC ACID 1,000 MG **IV Intra-op IV SCH; +ceFAZolin 2000MG 2,000 MG/15 ML SYR IV SCH; +fentaNYL citrate 100 MCG/2 ML VIAL ONE
--- NOTE | 2020-08-28 06:51 | History & Physical Bridge Note ---
Date of Service August 28, 2020 History & Physical Bridge Note I have examined the patient, reviewed the History & Physical and in the interval since the performance of the History & Physical I have noted the following changes of clinical significance: no changes noted
[2020-08-28] MEDS ORDERED: ePHEDrine sulfate 50 MG/ML AMP IV PRN (08:10)
[2020-08-28] MEDS ORDERED: ATROPINE SULFATE 0.1 MG/ML 10ML SYR IV PRN (08:10)
[2020-08-28] MEDS ORDERED: ONDANSETRON INJ 2 MG/ML 2 ML VIAL IV PRN ×2 (08:10→12:42)
[2020-08-28] MEDS ORDERED: fentaNYL citrate 100 MCG/2 ML VIAL IV PRN (08:10)
[2020-08-28] MEDS ORDERED: BUPIVACAINE/EPINEPHRINE 0.25% 1:200,000 30 ML VIAL ONE (08:43)
[2020-08-28] MEDS ORDERED: BUPIVACAINE LIPOSOME 1.3% 266 MG/20 ML VIAL ONE (08:43)
[2020-08-28] MEDS ORDERED: BACITRACIN INJ 50,000 UNIT VIAL ONE (08:43)
[2020-08-28] MEDS ORDERED: SODIUM CHLORIDE 0.9% PF 50 ML VIAL ONE (08:43)
[2020-08-28] MEDS ORDERED: PROPOFOL IV EMULSION 10 MG/ML 20 ML VIAL IV ONE (09:08)
[2020-08-28] MEDS ORDERED: ONDANSETRON INJ 2 MG/ML 2 ML VIAL ONE (09:09)
--- NOTE | 2020-08-28 10:38 | Post Operative Brief Note ---
PG Immediate Post Op with CF Date of Surgery August 28, 2020 Pre & Post Diagnosis Operation Date: 08/28/20 08:50 Pre-Op Diagnosis: Right Knee Degerative Joint Disease Post-Op Diagnosis: Right Knee Degerative Joint Disease I identified the patient and participated in the time-out.: Yes Procedure Operation Date: 08/28/20 08:50 Actual Procedures p Right Total Knee Arthroplasty, Cemented(Right) - Lonny Riddle MD Surgeon Lonny Riddle MD Manager Water Jorge L, [facility] Estimated Blood Loss 50 Findings Consistent with Post-Op Diagnosis Fluids 800 cc Specimens Specimen Description: Permanent specimen: A. Right knee bone and tissue Drains Barrera Catheter Anesthesia Type Spinal MAC Complications none Disposition Accompanied Patient To Recovery: No Disposition: Recovery Room
--- NOTE | 2020-08-28 10:51 | Operative Report ---
Post Operative Report Pre & Post Diagnosis Operation Date: 08/28/20 08:50 Pre-Op Diagnosis: Right Knee Degerative Joint Disease Post-Op Diagnosis: Right Knee Degerative Joint Disease I identified the patient and participated in the time-out.: Yes Procedure Operation Date: 08/28/20 08:50 Actual Procedures p Right Total Knee Arthroplasty, Cemented(Right) - Lonny Riddle MD Surgeon Lonny Riddle MD Motor Tester Jorge L, PAC Estimated Blood Loss 50 Findings Consistent with Post-Op Diagnosis Operative findings revealed advanced right knee DJD with extensive grade 4 [id number]-ej-mfbv disease of the medial and patellofemoral compartments. She had a varus deformity to her knee. Moderate to large knee joint effusion. Her lateral compartment was fairly well spared. Fluids 800 cc. Specimens Right knee sent for pathology. Drains None. 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 She has been through extensive conservative treatment over the years including oral medicines as well as injections. This became less successful over time. The right knee was by the more than the left. X-rays show advanced DJD. She elected proceed with surgical treatment. Description of Procedure Operative implants consisted of: 1. Biomet Vanguard size 70 right posterior stabilized femoral component. 2. Biomet size 71 tibial tray. 3. 12 mm posterior stabilized polyethylene insert. 4. 31 x 8 all polypatella. The patient was taken to the operating room identified and placed on the operating table supine position but all contact areas were properly padded. IV antibiotics tried by anesthesia team. Spinal anesthetic and abductor canal block had been provided in the holding area. Barrera catheter was placed in sterile fashion. A right thigh turn was then placed in the right lower extremities and prepped and draped in usual sterile fashion. The right leg was elevated exsanguinated with use of an Esmarch and turns placed at 3 mmHg. An anterior approach of the right knee was then performed to longitudinal incision centered over the patella. Sharp dissection was carried through subcutaneous this down the extensor mechanism. A medial parapatellar arthrotomy incision was made. Some subperiosteal dissection was carried out medially. The fat pad was resected from each patella tendon. The lateral patellofemoral ligament was released. Patella was subluxated laterally and the knee was flexed. The osteophytes were taken off the distal femur. The ACL and PCL were then released from distal femur and the tibia subluxate anteriorly. The external tibial alignment jig was then placed in the interface the tibia and adjusted 14 mm medially. Proximal tibial cut was made remove about 2 to 3 mm of bone for the most deficient aspect of the medial tibial plateau. Some osteophytes taken off medially. The tibia was sized to a size 71. Attention drawn to the femur. The distal femur turned the sharp drill. The intramedullary canal was suction. A right 5 degree valgus cutting guide was placed. The distal femoral cutting block was pinned in place. Distal femoral cut was made to take an additional 3 mm of bone off distal femur. The femur was then sized to a size 70. We did downsize a slightly. The AP cutting block was pinned parallel to the epicondylar axis which was 3 degrees of external rotation. The anterior cut, anterior chamfer, posterior cut, posterior chamfer cuts were made. Box cutting guide was placed and adjusted slightly lateral. The box cut was made. The knee was flexed. The remnants of the medial lateral menisci were excised. The osteophytes were taken off the posterior aspect of the femur. A trial femoral component was placed. The tibial tray was pinned in maximum external rotation and the drill and stem punch were used to create the defect in the proximal tibia for the tibial tray. The knee was then trialed and the 12 mm insert fit most appropriately. Attention drawn the patella. Patella was cleaned of all soft tissues. Patella thickness measured 23 mm in thickness was cut down to 14. Was sized to a size 31 patella. The lug holes were drilled for the 231 patella. The lateral osteophyte is moved. Patella button was placed. Knee was taken through range of motion patella tracked nicely with no thumbs test. Attention turned to placing permanent components. All trial components were removed. Bone plug was placed in the distal femur limit blood loss. A double batch Palacos G cement was mixed. A Biomet Vanguard size 70 right posterior stabilized femoral component, size 71 tibial tray, a 12 mm posterior box polyethylene insert, and a 31 x 8 all polypatella were then cemented in place. The knee was brought out into full extension total cement hardened. Final cement check was then performed. The pericapsular tissues were injected with total 100 cc of combination of 20 cc of Exparel, 30 cc normal saline, 50 cc of quarter percent Marcaine with epinephrine. Patient did receive 1 g tranexamic acid per the tourniquet was then let down for final treatment time 57 minutes. Hemostasis assured use electrocautery. The extensor mechanism then closed with combination of #1 PDS suture and then 1 Vicryl suture in a otjioa-iv-[id number] fashion. Extensor mechanism checked found to be intact and the subcutaneous tissue then closed with 2 Dexon suture in a buried interrupted fashion skin was closed skin keisha. Leg was then cleaned and dried and steri le dressing applied Xeroform, 4 x 4's, sterile cast padding, Angel bandage were applied. The patient then transferred to the recovery room in stable condition. The patient tolerated the procedure well and there were no complications. Yash Coats, my physician first assistant, was present for the entire procedure. His assistance was essential and required for appropriate patient positioning, prepping and draping, surgical exposure, performing the technical details of the operation, placement the implants, closure of the wound, and placement of the sterile bandage. I attest to the content of the Intraoperative Record and any orders documented therein. Any exceptions are noted below.
--- NOTE | 2020-08-28 11:38 | XRay Report ---
RIGHT KNEE 2 VIEWS History: Right total knee arthroplasty. Degenerative arthritis. Postop. FINDINGS: The patient is status post a right total knee arthroplasty. The hardware is intact. No frac ture or dislocation. Skin keisha are in place. IMPRESSION: Right total knee arthroplasty. No evidence for hardware complication. ACT 112: Negative or not required by law. Electronically signed by: Hans Mclain M.D. 08/28/2020 11:36 AM
--- NOTE | 2020-08-28 12:06 | Anesthesiology Progress Note ---
Date of Service August 28, 2020 Anesthesia Post Procedure Vital Signs Vital Signs: Temp Pulse Pulse Resp BP BP Pulse Ox 08/28/20 11:50 64 12 126/67 93 08/28/20 11:40 58 L 13 136/70 92 08/28/20 11:30 36.4 C L 61 14 116/70 93 08/28/20 11:20 60 12 132/71 93 08/28/20 11:10 60 13 123/70 96 08/28/20 11:00 63 17 110/66 96 08/28/20 10:50 64 17 120/51 L 95 08/28/20 10:44 36.5 C 71 21 114/55 L 96 08/28/20 07:45 63 20 130/80 97 08/28/20 07:08 36.9 C 82 18 160/81 H 97 Transfer of Care Handoff Completed per policy Notes Mental Status: alert / awake / arousable Patient Amnestic to Procedure: Yes Nausea / Vomiting: adequately controlled Pain: adequately controlled Airway Patency, RR, SpO2: stable & adequate BP & HR: stable & adequate Hydration State: stable & adequate Neuraxial Anesthesia: was administered and sensory block is resolving Anesthetic Complications: no major complications apparent
[2020-08-28] MEDS ORDERED: ALUMINUM/MAGNESIUM SUSP 30 ML UDC PO PRN (12:42)
[2020-08-28] MEDS ORDERED: HYDROmorphone INJ 0.5 MG/0.5 ML SYR IV PRN (12:42)
[2020-08-28] MEDS ORDERED: bisacodyL 10 MG SUPP PR PRN (12:42)
[2020-08-28] MEDS ORDERED: HYDROmorphone HCL 2 MG TAB PO PRN (12:42)
[2020-08-28] MEDS ORDERED: traMADol HCL 50 MG TABLET PO PRN (12:42)
[2020-08-28] MEDS ORDERED: METOCLOPRAMIDE HCL INJ 5 MG/ML 2 ML VIAL IV PRN (12:42)
[2020-08-28] MEDS ORDERED: NALOXONE HCL 0.4 MG/1 ML VIAL/CARP IV PRN (12:42)
[2020-08-28] MEDS ORDERED: SODIUM CHLORIDE 0.9% 1000ML 1,000 ML IV SCH (12:42)
[2020-08-28] MEDS ORDERED: diphenhydrAMINE Capsule 25 MG CAP PO PRN (12:42)
[2020-08-28] MEDS ORDERED: MAGNESIUM HYDROXIDE SUSP 30 ML UDC PO PRN (12:42)
--- NOTE | 2020-08-28 13:15 | Progress Notes ---
DATE: 08/28/2020 SUBJECTIVE: A 64-year-old female postop from a right knee replacement. She is doing well. Not having any pain yet. Her foot function has returned. No chest pain or shortness of breath. Not feeling dizzy or lightheaded. OBJECTIVE: VITAL SIGNS: Temperature 37.0. Vital signs stable. GENERAL: Shows a pleasant, middle-aged female. She is sitting up in bed, looks quite comfortable. LUNGS: Clear to auscultation. HEART: Has a regular rate and rhythm. ABDOMEN: Soft, nontender, nondistended. EXTREMITIES: Grossly neurovascularly intact except as follows: Examination of the right leg reveals the leg to be well aligned. Dressing is clean, dry and intact. She can dorsiflex and plantarflex her foot appropriately. She is neurologically intact. X-RAYS: X-rays of the right knee from recovery room were reviewed. It shows a right cemented posterior stabilized total knee arthroplasty. Components looked to be in good position. No signs of problems. ASSESSMENT: A 64-year-old female postoperative from right knee replacement, doing well. Pain is controlled. She is neurologically intact. PLAN: 1. DVT prophylaxis including thigh-high TEDs, SCDs, and aspirin twice a day. 2. PT/OT. Weight bear as tolerated. Right total knee protocol. 3. Pain control, doing okay with current pain regimen. She does not do well with oxycodone. We will try tramadol and if that does not work adequately, we will use Dilaudid for p.o. pain medicines. 4. IV antibiotics x24 hours. 5. Disposition: Plan to discharge to home with some home health once adequately recovered and medically stable and getting around safely.
[2020-08-28] MEDS: KETOROLAC 30 MG/ML VIAL IV SCH ×2 (13:31→20:14)
[2020-08-28] MEDS: ACETAMINOPHEN 500 MG TAB PO SCH ×2 (13:31→21:16)
[2020-08-28] MEDS: Scopolamine CHECK PATCH PLACEMENT SCH ×2 (15:27→23:26)
[2020-08-28] MEDS ORDERED: TRANEXAMIC ACID / 0.7% NACL 1,000 MG/100 ML BAG IV SCH (16:45)
[2020-08-28] MEDS: ASCORBIC ACID 500 MG TAB PO SCH (16:48)
[2020-08-28] MEDS: ceFAZolin 2000MG 2,000 MG/15 ML SYR IV SCH (16:49)
[2020-08-28] MEDS: FERROUS GLUCONATE 324 MG TAB PO SCH (16:49)
[2020-08-28] MEDS: DOCUSATE SODIUM 100 MG CAP PO SCH (20:15)
[2020-08-28] MEDS: ASPIRIN 81 MG ECTAB PO SCH (20:16)
[2020-08-28] MEDS ORDERED: SENNA 8.6 MG TAB PO SCH (21:00)
[2020-08-29] MEDS: KETOROLAC 30 MG/ML VIAL IV SCH ×3 (01:15→12:59)
[2020-08-29] MEDS: ceFAZolin 2000MG 2,000 MG/15 ML SYR IV SCH (01:15)
[2020-08-29] MEDS: ACETAMINOPHEN 500 MG TAB PO SCH ×2 (05:26→13:34)
[2020-08-29 05:56] LABS: Hematocrit (blood only) 34.5 % (37-47); Hemoglobin 11.7 g/dL (12.0-16.0); Mean Corpuscular Hemoglobin 31.4 pg (25-34); Mean Corpuscular Hgb Conc 33.9 g/dL (32-36); Mean Corpuscular Volume 92.5 fL (80-100); Mean Platelet Volume 10.3 fL (7.4-10.4); Platelet Count 209 K/uL (130-400); RDW Coefficient of Variation 12.6 % (11.5-14.5); RDW Standard Deviation 42.8 fL (36.4-46.3); Red Blood Count 3.73 M/uL (4.2-5.4); White Blood Count 12.73 K/uL (4.8-10.8)
[2020-08-29 06:21] LABS: Calcium 8.9 mg/dl (8.5-10.1); Creatinine Clr Calc Pharmacy 66.8 ml/min; Est GFR (African American) 72.9; Est GFR (Non-African American) 62.9; Potassium 4.3 mmol/L (3.5-5.1)
[2020-08-29] MEDS: Scopolamine CHECK PATCH PLACEMENT SCH (08:44)
[2020-08-29] MEDS: ASCORBIC ACID 500 MG TAB PO SCH (08:44)
[2020-08-29] MEDS: FERROUS GLUCONATE 324 MG TAB PO SCH (08:45)
[2020-08-29] MEDS: ASPIRIN 81 MG ECTAB PO SCH (08:45)
[2020-08-29] MEDS: DOCUSATE SODIUM 100 MG CAP PO SCH (08:46)
[2020-08-29] MEDS ORDERED: NON-FORMULARY MEDICATION (Potassium Gluconate 595 MG) PO SCH (09:00)
[2020-08-29] MEDS ORDERED: MAGNESIUM OXIDE 400 MG TAB PO SCH (09:00)
[2020-08-29] MEDS ORDERED: LOSARTAN/HCTZ 50/12.5MG TAB PO SCH (09:00)
[2020-08-29] MEDS ORDERED: MULTIVITAMIN TAB PO SCH (09:00)
[2020-08-29] MEDS ORDERED: OMEGA-3 (PURIFIED FISH OIL) 1 GM CAP PO SCH (09:00)
[2020-08-29] MEDS ORDERED: CHOLECALCIFEROL 1,000 UNITS 25 MCG TAB PO SCH (09:00)
--- NOTE | 2020-08-29 18:52 | Progress Notes ---
DATE: 08/29/2020 SUBJECTIVE: The patient is postop day 1 from a right knee replacement. She is doing well. Remarkably little pain. She is taking mostly just Tylenol. Therapy went well. Denies any chest pain or shortness of breath. Not feeling dizzy or lightheaded. OBJECTIVE: VITAL SIGNS: The patient is afebrile. Her vital signs are stable. EXTREMITIES: Examination of the right leg reveals the dressing to be clean, dry and intact. She can do a straight leg raise. She can dorsiflex and plantarflex her foot appropriately. She is neurologically intact. ASSESSMENT: A 64-year-old female postoperative day 1 from right knee replacement, doing well. Pain is controlled. She is neurologically intact. PLAN: 1. DVT prophylaxis including thigh-high TEDs, SCDs, and aspirin twice a day. 2. PT/OT. Weight bear as tolerated. Right total knee protocol. 3. Pain control, doing well with current pain regimen. 4. Disposition: She is going to be discharged to home with some home health.
--- NOTE | 2020-09-03 19:09 | Discharge Summary ---
Date of Service September 03, 2020 Admission HPI Per Admitting Provider Documented in the H & P Admission Exam (Per Admitting) Constitutional Documented in the H & P Discharge Data Consultations 08/28/20 12:42 Consult Case Management - Discharge Planning Routine Procedures Performed Operation Date: 08/28/20 08:50 Actual Procedures p Right Total Knee Arthroplasty, Cemented(Right) - Lonny Riddle MD Hospital Course (1) Status post total right knee replacement: This patient is a 64 year old female admitted on 08/28/20 and underwent total knee arthroplasty. She tolerated the procedure well and there were no complications. Transferred to the PACU post op and later to the orthopedic floor for further care. She was given ancef for antibiotic prophylaxis. She was also given JASMIN stockings, SCDs, and aspirin for DVT prophylaxis. Hemoglobin, hematocrit, and vital signs were monitored during her hospital stay and remained stable. Did not require any blood transfusions. There were no complications during her hospital stay. By post op day #1 the patient was tolerating a regular diet, pain was reasonably controlled with oral pain medicine, and she was participating in physical therapy. On post op day #1 the patient was discharged home and set up with home health care. She was given printed discharge instructions including prescriptions for extra strength tylenol, aspirin, iron supplement and tramadol. Continue physical therapy, weight bearing as tolerated. Continue JASMIN stockings. Follow up approximately 2 weeks post op or sooner if there are problems or concerns. Coding Level of Care Code None Diagnoses Status post total right knee replacement Z96.651
== END 2020-08-29 17:16 | disposition home health service (06) ==
LOC: 3E 06:42 → ASU 06:42

== ENCOUNTER 2022-12-23 05:12 | Observation (INO) ==
--- NOTE | 2022-12-02 11:12 | PAT Medication Instructions ---
Medication Instructions Date of Service December 02, 2022 Home Medications Medication Instructions Recorded diclofenac sodium 75 mg 75 mg PO BID PRN Pain #60 tabs 10/19/20 tablet,delayed release cholecalciferol (vitamin D3) 25 mcg (1,000 unit) capsule (Vitamin D3) 2,000 unit PO QAM losartan 100 mg-hydrochlorothiazide 25 mg tablet 1 tab PO QAM potassium gluconate 595 mg (99 mg) tablet 595 mg PO QAM magnesium oxide 250 mg PO QAM diclofenac sodium 75 mg tablet,delayed release 75 mg PO BID PRN Pain] carboxymethylcellulose sodium 0.5 % eye drops (Refresh Tears) 1 drp ophthalmic (eye) BID PRN dry eye(s) coenzyme Q10 100 mg capsule (Co Q-10) 100 mg PO QAM metformin 500 mg tablet 500 mg PO BID multivitamin 1 tab PO QAM ASK your surgeon for instructions diclofenac sodium 75 mg tablet,delayed release 75 mg PO BID PRN Pain STOP taking 2 weeks before surgery coenzyme Q10 100 mg capsule (Co Q-10) 100 mg PO QAM DO NOT take the morning of surgery cholecalciferol (vitamin D3) 25 mcg (1,000 unit) capsule (Vitamin D3) 2,000 unit PO QAM losartan 100 mg-hydrochlorothiazide 25 mg tablet 1 tab PO QAM potassium gluconate 595 mg (99 mg) tablet 595 mg PO QAM magnesium oxide 250 mg PO QAM metformin 500 mg tablet 500 mg PO BID multivitamin 1 tab PO QAM Take morning of surgery OTHERWISE NOTHING TO EAT OR DRINK AFTER MIDNIGHT: carboxymethylcellulose sodium 0.5 % eye drops (Refresh Tears) 1 drp ophthalmic (eye) BID PRN dry eye(s) (if needed) Take evening before surgery carboxymethylcellulose sodium 0.5 % eye drops (Refresh Tears) 1 drp ophthalmic (eye) BID PRN dry eye(s) (if needed) metformin 500 mg tablet 500 mg PO BID Other Notes If you have any questions please call us at [phone] or [phone] or [phone] or [phone]
--- NOTE | 2022-12-03 08:23 | Anesthesiology Consultation ---
Date of Service December 03, 2022 Assessment & Plan (1) Encounter for pre-operative examination: - COVID screening: Per assessment : No known COVID-19 positive contacts or current COVID-19 related symptoms. Travel screen negative. Patient vaccinated. At surgeon discretion if preop Covid testing being done. - Check BSG AM DOS - Outpatient joint assessment: Pt currently scheduled for inpatient pathway. If surgeon requests review for outpatient joint pathway, patient is an acceptable candidate for outpatient joint program from anesthesia standpoint. - S/P Right TKA (08/28/20): SAB at L3/4 (x1 attempt)+ PNB at [facility]. No issues noted per post-op anesthesia progress note. Chart Review Chart Review: Acceptable Risk for Surgery and Patient seen in Pre Admission Testing Teaching & Discussion Pre-Anesthesia Teaching/Discussion Notes: Instructed NPO after midnight before surgery,except medications with 15 cc of water. Medication instructions provided according to the PAT guidelines. History Surgery Operation Date: 12/23/22 09:20 Proposed Procedures p Left Total Knee Arthroplasty - Lonny Riddle MD Height/Weight Height: 5 ft 6 in Weight: 83.6 kg Allergies Allergy/AdvReac Type Severity Reaction Status Date / Time clarithromycin AdvReac Unknown Upset Verified 12/02/22 10:06 stomach oxycodone [From Roxicet] AdvReac Unknown Nausea, Verified 12/02/22 10:06 dizziness (tolerates name brand) Medications Home Medications Medication Instructions Recorded Confirmed Last Taken cholecalciferol (vitamin D3) 25 2,000 unit PO QAM 09/07/19 12/02/22 01/23/22 mcg (1,000 unit) capsule (Vitamin D3) losartan 100 1 tab PO QAM 09/07/19 12/02/22 01/23/22 mg-hydrochlorothiazide 25 mg tablet potassium gluconate 595 mg (99 mg) 595 mg PO QAM 09/07/19 12/02/22 01/23/22 tablet magnesium oxide 250 mg PO QAM 07/23/20 12/02/22 01/23/22 carboxymethylcellulose sodium 0.5 1 drp ophthalmic (eye) BID PRN dry 12/02/21 12/02/22 Unknown % eye drops (Refresh Tears) eye(s) coenzyme Q10 100 mg capsule (Co 100 mg PO QAM 12/02/22 12/02/22 Unknown Q-10) metformin 500 mg tablet 500 mg PO BID 12/02/22 12/02/22 Unknown multivitamin 1 tab PO QAM 12/02/22 12/02/22 Unknown Past Medical History Medical History Anxiety History of COVID-19 07/2022- mild headache, fatigue > resolved Hyperlipidemia no meds Hypertension Left knee DJD Osteoarthritis Prediabetes on metformin Sleep apnea no device (no CPAP x 1+ year, patient attempting weight loss), last sleep study done 2021 "negative" per patient Past Family History Family History Sister FHx: myocardial infarction, Onset Age: 39 Family history of diabetes mellitus Mother FHx: myocardial infarction, Onset Age: 50 Uncle Aneurysm Past Surgical History Surgical History History of breast biopsy with stereotactic biopsy (?SIDE) History of colonoscopy History of removal of cyst Low Back Cyst Excision (01/24/22): MAC at [facility] [place] History of total right knee replacement Right TKA (08/28/20): SAB at L3/4 (x1 attempt)+ PNB at [facility]. No issues noted per post-op anesthesia progress note. S/P left knee arthroscopy S/P KYLE (total abdominal hysterectomy) S/P trigger finger release bilateral (multiple) Past Anesthesia History No Hx of Anesthesia Complications and No Family Hx of Anesthesia Complications History of PONV No Hx of PONV and Hx of Motion Sickness (Very rare) Social History Smoking Status: Never smoker Do You Dip or Chew Tobacco: No Hx Alcohol Use: No Alcohol type: wine alcohol intake frequency: holidays/special occasions only Hx Substance Use: No substance use type: does not use Review of Systems Patient denies chest pain, shortness of breath, dyspnea on exertion, fever, chills, cough, wheezing, palpitations. Physical Exam Vital Signs VITALS BP 113/69 P 59 TEMP 98.2 SP02 98%RA RESP 16 PHYSICAL Full cervical extension range of motion. Full TMJ range of motion. TMD 3 finger breaths Mallampati Score 2 Dentition: intact, + several crowns/implants Lungs: clear throughout to auscultation Cardiac: regular rate and rhythm, no murmurs noted Spine: normal Carotid arteries: negative bruit Extremities: no edema Lab Results Anesthesia Preop Results Results Anesthesia Widget: WBC 5.47 K/ul (4.8-10.8) 12/03/22 Hgb 13.9 g/dl (12.0-16.0) 12/03/22 Hct 40.7 % (34.1-44.9) 12/03/22 Plt 220 K/uL (130-400) 12/03/22 Na 139 mmol/L (136-145) 12/03/22 K 4.2 mmol/L (3.5-5.1) 12/03/22 Cl 104 mmol/L (98-107) 12/03/22 CO2 31 mmol/L (21-32) 12/03/22 BUN 14 mg/dl (6-23) 12/03/22 Creat 0.83 mg/dl (0.6-1.2) 12/03/22 Glucose Level 109 mg/dl (70-99(Fasting)) H 12/03/22 PT 11.2 Seconds (9.0-12.0) 12/03/22 PTT 27.6 Seconds (21.0-31.0) 12/03/22 INR 1.1 (0.9-1.1) 12/03/22 Blood Type O Positive 12/03/22 Antibody Screen NEGATIVE 12/03/22 Testing Laboratory Results 07/02/22 HGBA1C 5.9% Electrocardiogram Date: 01/15/22 NSR at 63bpm. Low voltage QRS. PRWP, consider anterior MD vs lead placement vs LVH. Diffuse NS TWA. No significant change compared to 07/30/20 per [facility] sharpshooter review. Chest X-Ray Date: 12/03/22 Findings: + NAD Echocardiogram Date: 06/19/17 EF 55 to 60%. Grade 2 diastolic dysfunction. Borderline LVD. No significant valvular disease. COVID-19 Risk Screen Screening Information COVID-19 Screen Date: 12/03/22 Exposure 21 Days Family/Household +COVID Last 21 Days: No Exposure 10 Days Any COVID Exposure Last 10 Days: No Symptoms Last 10 Days Experienced COVID Sx Last 10 Days: No + COVID 0-90 Days COVID + in Last 0-90 Days: No
[2022-12-23] MEDS ORDERED: ceFAZolin 2000MG 2,000 MG/15 ML SYR IV SCH (06:00)
[2022-12-23] MEDS ORDERED: LR 500ML BOLUS, THEN 15ML/HR IV SCH (06:00)
[2022-12-23] MEDS ORDERED: CeleBREX 200 MG CAP PO SCH (06:00)
[2022-12-23] MEDS ORDERED: FAMOTIDINE 20 MG TAB PO SCH (06:00)
[2022-12-23] MEDS ORDERED: LR 60ML/HR IV SCH (06:00)
[2022-12-23] MEDS ORDERED: ACETAMINOPHEN 500 MG TAB PO SCH (06:00)
[2022-12-23] MEDS ORDERED: TRANEXAMIC ACID 1,000 MG **IV Intra-op IV SCH (06:00)
[2022-12-23] MEDS ORDERED: METOCLOPRAMIDE HCL 10 MG TABLET PO SCH (06:00)
[2022-12-23] MEDS ORDERED: BUPIVACAINE LIPOSOME/PF 266 MG, BUPIVACAINE/EPINEPHRINE 50 ML, SODIUM CHLORIDE 0.9% 30 ... INFIL SCH (06:00)
[2022-12-23] MEDS ORDERED: Scopolamine 1 MG TDSY TD SCH (06:00)
[2022-12-23] MEDS ORDERED: ROPIVACAINE 0.5% 5 MG/ML 30 ML VIAL ONE (06:23)
[2022-12-23] MEDS ORDERED: MIDAZOLAM HCL 1 MG/ML 2ML VIAL ONE (06:37)
[2022-12-23] MEDS ORDERED: fentaNYL citrate 100 MCG/2 ML VIAL ONE (06:37)
[2022-12-23] MEDS ORDERED: SODIUM CHLORIDE 0.9% PF 50 ML VIAL ONE (06:38)
[2022-12-23] MEDS ORDERED: BUPIVACAINE LIPOSOME 1.3% 266 MG/20 ML VIAL ONE (06:38)
[2022-12-23] MEDS ORDERED: BUPIVACAINE/EPINEPHRINE 0.25% 1:200,000 30 ML VIAL ONE (06:38)
[2022-12-23] MEDS ORDERED: HYDROmorphone INJ 1 MG/ML SYRINGE IV PRN (06:48)
[2022-12-23] MEDS ORDERED: ATROPINE SULFATE 0.1 MG/ML 10ML SYR IV PRN (06:48)
[2022-12-23] MEDS ORDERED: ONDANSETRON INJ 2 MG/ML 2 ML VIAL IV PRN ×2 (06:48→09:50)
[2022-12-23] MEDS ORDERED: KETOROLAC 30 MG/ML VIAL IV PRN (06:48)
[2022-12-23] MEDS ORDERED: ePHEDrine sulfate 50 MG/ML AMP IV PRN (06:48)
--- NOTE | 2022-12-23 06:58 | History & Physical Bridge Note ---
Date of Service December 23, 2022 History & Physical Bridge Note I have examined the patient, reviewed the History & Physical and in the interval since the performance of the History & Physical I have noted the following changes of clinical significance: no changes noted
[2022-12-23] MEDS ORDERED: PROPOFOL IV EMULSION 10 MG/ML 20 ML VIAL IV ONE ×2 (07:17→07:42)
--- NOTE | 2022-12-23 08:48 | Operative Report ---
PG Post Operative Report Pre & Post Diagnosis Operation Date: 12/23/22 07:00 Pre-Op Diagnosis: Left Knee Advanced Degenerative Joint Disease Post-Op Diagnosis: Left Knee Advanced Degenerative Joint Disease I identified the patient and participated in the time-out.: Yes Procedure Operation Date: 12/23/22 07:00 Actual Procedures p Left Total Knee Arthroplasty(Left) - Lonny Riddle MD Surgeon Lonny Riddle MD Net Coordinator Yash Coats PA-C Estimated Blood Loss 50 Findings Consistent with Post-Op Diagnosis Operative findings advanced left knee medial compartment DJD. She had extensive diffuse grade 4 [id number] changes of the medial compartment with eburnation. As she had spotty grade 4 changes in the patellofemoral compartment. The lateral compartment is pretty well spared. She did have a fixed varus deformity to her knee and about a 10 degree flexion contracture. Large knee joint effusion. 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 Is been through extensive conservative treatment. She had a right knee replaced several years ago and is done well with this. She continued to be limited by left knee pain discomfort. X-ray showed advanced knee arthritis. She failed conservative measures. She elected proceed with total knee arthroplasty. Description of Procedure Operative implants consist of: 1 Biomet Vanguard size 67.5 left posterior stabilized femoral component. 2. Biomet size 71 tibial tray. 3. 12 mm posterior stabilized polyethylene insert. 4. 31 x 8 all poly patella. The patient was taken the operating, identified, placed on the operating table supine position. All contact areas were appropriately padded. IV antibiotics tried by anesthesia team. A spinal anesthetic and abductor canal block had provided in the holding area. Barrera catheter was placed in sterile fashion. Left factor was then placed in the left lower extremities then prepped and draped in usual sterile fashion. The left leg was elevated exsanguinated with use of an Esmarch and the tourniquet was set at 300 mmHg. An anterior approach the left knee was then performed to longitudinal incision centered over the patella. Sharp dissection was carried through subcutaneous tissue down the extensor mechanism. A medial parapatellar arthrotomy incision was made. Some subperiosteal dissection was carried out medially. The fat pad was dissected from Neath patella tendon. The lateral patellofemoral ligament was released. Patella subluxated laterally and the knee was flexed with the osteophytes taken off distal femur. The ACL and PCL were then released from distal femur the tibia subluxated anteriorly. The external tibial alignment jig was then placed the interface the tibia and adjusted 14 mm medially. Proximal tibial cut was made to remove about 2 to 3 mm of bone from most deficient aspect the medial tibial plateau. Some osteophytes taken off medial and posterior medially. The tibia was sized to a size 71. Attention drawn the femur. The distal femur then with a sharp drill. Intramedullary canal was suction. A left 5 degree valgus cutting guide was placed. Distal femoral cutting block was pinned in place. Distal femoral cut was made to take an additional 3 mm of bone off distal femur. The femur was then sized to a size 67.5. The AP cutting block was pinned parallel to the epicondylar axis which was 5 degrees of external rotation. Anterior cut, anterior chamfer, posterior cut, posterior chamfer cuts were made. The box cutting guide was placed in the just slight lateral and the box cut was made. The knee was flexed. The remnants of the medial and lateral menisci were excised. The osteophytes taken off the posterior aspect the femur. A trial femoral component was placed. The tibial tray was pinned in maximum external rotation and the drill and stem punch used to create defect in proximal tibia for the tibial tray. The knee was then trialed and the 12 mm insert fit most appropriately. Attention drawn the patella. The patella was cleaned of all soft tissues. Patella thickness measured 23 mm in thickness. It was cut down to 14. Was sized to a size 31 patella. The lug holes were drilled for the 31 patella. The lateral osteophytes removed. Patella button was placed. Knee was taken through range of motion and the patella tracked nicely with no thumbs test. Attention drawn to place the permanent components. Nupathe all trial components were removed. Bone plug was placed in the distal femur limit blood loss. A double batch Palacos G cement was mixed. Biomet StayNTouchguard size 67.5 left posterior stabilized femoral component, size 71 tibial tray, a 12 mm posterior stabilized polyethylene insert, and a 31 x 8 all Paller patella were then cemented in place. The knee was brought out into full extension until cement hardened. Final cement check was then performed. The pericapsular tissues were injected with total 100 cc of combination of 20 cc of Exparel, 30 cc normal saline, 50 cc of quarter percent Marcaine with epinephrine. Patient did receive 1 g tranexamic acid. The tourniquet was then let down for final tourniquet time of 51 minutes. Hemostasis assured use electrocautery. The wounds once again irrigated. Extensor mechanism then closed with combination 1 PDS suture #1 Vicryl suture in a [id number] fashion. Extensor mechanism checked found to be intact. The subcutaneous tissues were then closed with 2 Dexon suture in a buried interrupted fashion skin was closed skin keisha. Leg was then cleaned and dried and sterile dressing was Xeroform, 4 x 4's, sterile cast padding, Angel bandage applied. Patient then transferred to the recovery room in stable condition. Patient tolerated procedure well and there were no complications. Yash Coats, my physician dyer assistant, was present for the entire procedure. His assistance was essential and required for appropriate patient positioning, prepping and draping, surgical exposure, performing the technical details of the operation, placement the implants, closure of the wound, and placement of the sterile bandage. I attest to the content of the Intraoperative Record and any orders documented therein. Any exceptions are noted below.
--- NOTE | 2022-12-23 09:16 | XRay Report ---
XR knee LT 1 or 2V routine HISTORY: 67 years-old Female Surgical Post Op [knee arthroplasty COMPARISON: 11/27/2022 TECHNIQUE: 2 views of the left knee FINDINGS: Total joint arthroplasty with patellar resurfacing. Anterior midline skin keisha are present along w ith expected postoperative soft tissue swelling with deep tissue air. No acute fracture or unexpected opaque foreign body. IMPRESSION: Total joint arthroplasty with expected postoperative changes. ACT 112: Negative or not required by law. The above report was generated using voice recognition software. It may contain grammatical, syntax o r spelling errors. Electronically signed by: Marcellus Cannon M.D. 12/23/2022 9:14 AM
[2022-12-23] MEDS ORDERED: GLUCOSE 10 TAB/TUBE PO PRN (09:50)
[2022-12-23] MEDS ORDERED: HYDROmorphone INJ 0.5 MG/0.5 ML SYR IV PRN (09:50)
[2022-12-23] MEDS ORDERED: DEXTROSE 50% 50 ML SYRINGE IV PRN (09:50)
[2022-12-23] MEDS ORDERED: PHARMACY GLYCEMIC MGMT CONSULT PRN (09:50)
[2022-12-23] MEDS ORDERED: NON-FORMULARY MEDICATION (Multivitamin Tablet) PO SCH (09:50)
[2022-12-23] MEDS ORDERED: MAGNESIUM HYDROXIDE SUSP 30 ML UDC PO PRN (09:50)
[2022-12-23] MEDS ORDERED: oxyCODONE HCL IR 5 MG TAB (IMMEDIATE RELEASE) PO PRN (09:50)
[2022-12-23] MEDS ORDERED: ALUMINUM/MAGNESIUM SUSP 30 ML UDC PO PRN (09:50)
[2022-12-23] MEDS ORDERED: NALOXONE HCL 0.4 MG/1 ML VIAL/CARP IV PRN (09:50)
[2022-12-23] MEDS ORDERED: NON-FORMULARY MEDICATION (Coenzyme Q10 [Co Q-10] 100 mg Capsule) PO SCH (09:50)
[2022-12-23] MEDS ORDERED: DOCUSATE SODIUM/SENNA 50/8.6MG TAB PO SCH (09:50)
[2022-12-23] MEDS ORDERED: METOCLOPRAMIDE HCL INJ 5 MG/ML 2 ML VIAL IV PRN (09:50)
[2022-12-23] MEDS ORDERED: bisacodyL 10 MG SUPP PR PRN (09:50)
[2022-12-23] MEDS ORDERED: CARBOHYDRATES FOR HYPOGLYCEMIA PO PRN (09:50)
[2022-12-23] MEDS ORDERED: NON-FORMULARY MEDICATION (Potassium Gluconate 595 mg (99 mg) Tablet) PO SCH (09:50)
[2022-12-23] MEDS ORDERED: GLUCOSE 40% GEL 15 GM TUBE PO PRN (09:50)
[2022-12-23] MEDS ORDERED: GLUCAGON FOR INJ 1 MG VIAL SQ PRN (09:50)
--- NOTE | 2022-12-23 09:55 | Anesthesiology Progress Note ---
Date of Service December 23, 2022 Anesthesia Post Procedure Vital Signs Vital Signs: Temp Pulse Resp BP BP Pulse Ox O2 Del Method 12/23/22 09:25 36.2 C L 53 L 17 103/46 L 92 Room Air 12/23/22 09:15 57 L 16 95/50 L 99 Room Air 12/23/22 09:05 61 13 116/59 L 95 Room Air 12/23/22 08:55 62 20 108/58 L 96 Room Air 12/23/22 08:45 36.6 C 68 14 105/54 L 98 Room Air 12/23/22 05:54 36.8 C 75 20 127/76 97 Room Air Pain Intensity Left Knee: Pain Intensity: 0 Transfer of Care Handoff Completed per policy Notes Mental Status: alert / awake / arousable Patient Amnestic to Procedure: Yes Nausea / Vomiting: adequately controlled Pain: adequately controlled Airway Patency, RR, SpO2: stable & adequate BP & HR: stable & adequate Hydration State: stable & adequate Anesthetic Complications: no major complications apparent
[2022-12-23] MEDS ORDERED: dexAMETHasone 10 MG in SYRINGE 0 ML IV SCH (10:30)
[2022-12-23] MEDS ORDERED: NovoLIN-N (NPH) PER UNIT CHARGE SQ ONE (12:45)
[2022-12-23] MEDS: ACETAMINOPHEN 500 MG TAB PO SCH ×3 (13:02→21:43)
[2022-12-23] MEDS: DOCUSATE SODIUM 100 MG CAP PO SCH ×2 (13:03→21:45)
[2022-12-23] MEDS: ASPIRIN 81 MG ECTAB PO SCH ×2 (13:03→21:44)
[2022-12-23] MEDS: CHOLECALCIFEROL 1,000 UNITS 25 MCG TAB PO SCH (13:03)
[2022-12-23] MEDS: MAGNESIUM OXIDE 400 MG TAB PO SCH (13:04)
[2022-12-23] MEDS: INSULIN ASPART PER UNIT SC SCH ×4 (13:04→21:57)
[2022-12-23] MEDS: LOSARTAN/HCTZ 50/12.5MG TAB PO SCH (13:04)
[2022-12-23] MEDS: MULTIVITAMIN TAB PO SCH (13:04)
[2022-12-23] MEDS: SODIUM CHLORIDE 0.9% 1000ML 1,000 ML IV SCH ×2 (13:04→22:43)
[2022-12-23] MEDS: KETOROLAC TROMETHAMINE 15 MG/ML VIAL IV SCH ×3 (13:04→21:58)
[2022-12-23] MEDS ORDERED: TRANEXAMIC ACID / 0.7% NACL 1,000 MG/100 ML BAG IV SCH (14:45)
[2022-12-23] MEDS: Scopolamine CHECK PATCH PLACEMENT SCH ×2 (15:32→23:26)
[2022-12-23] MEDS: ceFAZolin 2000MG 2,000 MG/15 ML SYR IV SCH ×2 (15:38→22:09)
[2022-12-23] MEDS: ASCORBIC ACID 500 MG TAB PO SCH (17:13)
[2022-12-23] MEDS ORDERED: SENNA 8.6 MG TAB PO SCH (21:00)
[2022-12-24] MEDS: KETOROLAC TROMETHAMINE 15 MG/ML VIAL IV SCH ×2 (05:10→10:05)
[2022-12-24 06:15] LABS: Hematocrit (blood only) 34.5 % (37.0-47.0); Mean Corpuscular Hemoglobin 31.5 pg (25.0-34.0); Mean Corpuscular Hgb Conc 34.8 g/dL (32.0-36.0); Mean Corpuscular Volume 90.6 fL (80.0-100.0); Mean Platelet Volume 10.2 fL (9.4-12.4); Platelet Count 223 K/uL (130-400); RDW Standard Deviation 39.8 fL (36.4-46.3); Red Blood Count 3.81 M/uL (4.20-5.40); White Blood Count 16.82 K/ul (4.8-10.8)
[2022-12-24] MEDS: SODIUM CHLORIDE 0.9% 1000ML 1,000 ML IV SCH (07:41)
[2022-12-24 08:15] LABS: BUN Creatinine Ratio 22.5 (10-20); Calcium 9.2 mg/dl (8.5-10.1); Creatinine Clr Calc Pharmacy 75.6 ml/min; Est GFR (Non-African American) 76.8 ml/min; Potassium 4.1 mmol/L (3.5-5.1)
[2022-12-24] MEDS: CHOLECALCIFEROL 1,000 UNITS 25 MCG TAB PO SCH (08:23)
[2022-12-24] MEDS: LOSARTAN/HCTZ 50/12.5MG TAB PO SCH (08:24)
[2022-12-24] MEDS: ASPIRIN 81 MG ECTAB PO SCH (08:24)
[2022-12-24] MEDS: MAGNESIUM OXIDE 400 MG TAB PO SCH (08:24)
[2022-12-24] MEDS: DOCUSATE SODIUM 100 MG CAP PO SCH (08:25)
[2022-12-24] MEDS: ASCORBIC ACID 500 MG TAB PO SCH (08:25)
[2022-12-24] MEDS: MULTIVITAMIN TAB PO SCH (08:25)
[2022-12-24] MEDS: Scopolamine CHECK PATCH PLACEMENT SCH (08:26)
[2022-12-24] MEDS: ACETAMINOPHEN 500 MG TAB PO SCH ×2 (08:27→14:09)
[2022-12-24] MEDS: INSULIN ASPART PER UNIT SC SCH ×2 (08:56→13:02)
[2022-12-24] MEDS ORDERED: ARTIFICIAL TEARS OP PRN (10:45)
--- NOTE | 2022-12-24 10:56 | Progress Notes ---
DATE OF SERVICE: 12/24/2022 SUBJECTIVE: A 67-year-old white female postoperative day 1 from a left knee replacement. She is doi ng pretty well. Some pain, but very manageable. No chest pain or shortness of breath. Not feeling dizzy or lightheaded. She is hoping to go home today. OBJECTIVE: VITAL SIGNS: Temperature 36.6. Vital signs are stable. PHYSICAL EXAMINATION: GENERAL: Shows a pleasant middle-aged female. She is sitting up in her bedside chair and looks comf ortable. LUNGS: Clear to auscultation. HEART: Regular rate and rhythm. ABDOMEN: Soft, nontender, and nondistended. EXTREMITIES: Grossly neurovascularly intact except as follows. Examination of the left knee reveals the dressing to be clean, dry, and intact. She can dorsiflex an d plantarflex her foot appropriately. She can do a straight leg raise, but has about a 10-degree lag . No pain with hip motion. LABORATORY DATA: Hemoglobin is 12.0. Hematocrit is 34.5. Electrolytes are stable. ASSESSMENT: A 67-year-old white female postoperative day 1 from left knee replacement, doing pretty well. Pain is controlled. She is neurologically intact. PLAN: 1. DVT prophylaxis to include thigh-high TEDs, SCDs, and aspirin twice a day. 2. PT, OT, and weightbear as tolerated. Left total knee protocol. 3. Pain control, doing okay with current pain regimen. 4. Disposition: Plan to discharge to home with some home health likely later today if does okay in therapy. Job ID: [id number]
--- NOTE | 2022-12-30 08:53 | Discharge Summary ---
Date of Service December 30, 2022 Discharge Data Procedures Performed Operation Date: 12/23/22 07:00 Actual Procedures p Left Total Knee Arthroplasty(Left) - Lonny Riddle MD Hospital Course (1) Status post total left knee replacement: This is a 67 year old patient admitted on 12/23/22 and underwent total knee arthroplasty. She tolerated the procedure well and there were no complications. Transferred to the PACU post op and later to the orthopedic floor for further care. She was given ancef for antibiotic prophylaxis. She was also given JASMIN stockings, SCDs, and aspirin for DVT prophylaxis. Hemoglobin, hematocrit, and vital signs were monitored during her hospital stay and remained stable. Did not require any blood transfusions. There were no complications during her hospital stay. By post op day #1 the patient was tolerating a diabetic diet, pain was reasonably controlled with oral pain medicine, and she was participating in physical therapy. On post op day #1 the patient was discharged home and set up with home health care. She was given printed discharge instructions including prescriptions for extra strength tylenol, aspirin, cefadroxil, ketorolac, zofran, senokt, and oxycodone. Continue physical therapy, weight bearing as tolerated. Continue JASMIN stockings. Follow up approximately 2 weeks post op or sooner if there are problems or concerns. Coding Level of Care Code None Diagnoses Status post total left knee replacement Z96.652
== END 2022-12-24 14:16 | disposition home health service (06) ==
LOC: ASU 05:12 → 3E 05:12